=== PATIENT | female | born 1960 | race Caucasian/White ===

== ENCOUNTER 2020-08-31 16:26 | Inpatient (IN) | payer BC ==
[~2020-08-31] VITALS: Ht 167.6 cm; Wt 70.7 kg
[~2020-08-31 16:26] MED LIST: ASPI-252 PO; Albuterol Sulfate NEB; CYAN-25 PO; FERR-36 PO; FLUO20CA20 PO; LISI-130 PO; Metoprolol Tartrate PO; OLAN20TA15 PO; ONDA8TAB9 PO; RISP2TAB78 PO; VALS1TAB33 PO
[2020-08-31 19:00] VITALS: BP 159/64
[2020-08-31] MEDS ORDERED: guaiFENesin ORAL 200 MG/10 ML LIQUID. PO PRN (19:45)
[2020-08-31] MEDS ORDERED: DOCUSATE SODIUM 100 MG CAPSULE. PO PRN (19:45)
[2020-08-31] MEDS ORDERED: ALBUTEROL SULFATE 2.5 MG/3 ML NEBU. NEB PRN (19:45)
[2020-08-31] MEDS ORDERED: ONDANSETRON PF 4 MG/2 ML VIAL. IV PRN (19:45)
[2020-08-31] MEDS ORDERED: SODIUM PHOSPHATES 19/7GM 133 ML ENEMA. PR PRN (19:45)
[2020-08-31] MEDS ORDERED: ACETAMINOPHEN 325 MG TABLET. PO PRN (19:45)
[2020-08-31] MEDS ORDERED: MAG HYDROX/ALUMINUM HYD/SIMETH 30 ML ORAL.SUSP PO PRN (19:45)
[2020-08-31] MEDS ORDERED: 0.9 % SODIUM CHLORIDE 10 ML DISP.SYRIN. IV PRN (20:00)
[2020-08-31] MEDS: HYDROmorphone 2 MG/ML VIAL IVP PRN ×2 (20:30→23:38)
[2020-08-31] MEDS: IV NORMAL SALINE 1000ML BAG 1,000 ML IV SCH (20:32)
[2020-08-31] MEDS: ENOXAPARIN 40 MG/0.4 ML SYRINGE. SQ SCH (20:32)
--- NOTE | 2020-08-31 20:35 | NUR ---
Scheduled Lovenox non-administered d/t pending surgery in AM.
[2020-08-31] MEDS: diphenhydrAMINE 50 MG/ML VIAL IVP PRN (21:52)
[2020-08-31 23:00] VITALS: BP 169/71
--- NOTE | 2020-08-31 23:00 | NUR ---
ADMIT NOTE The patient, LARON BOSS, 60 y/o, F admitted by MORALES LIVINGSTON MD, was given written information regarding hospital policies, unit procedures and contact persons. MD aware of patient's admit to floor and orders received. Patient orientated to room, plan of care discussed and admit packet reviewed. Patient's allergies and daily medications verified; preferred pharmacy reviewed. All patient's belongings left in room at time of admission. Patient resting in bed, bed in lowest/locked position, alarm active and call light within reach; no other needs voiced at this time.
[2020-08-31] MEDS: PIPERACILLIN/TAZOBACTAM 3.375 GM in IV NORMAL SALINE 50ML 50 ML IV SCH (23:38)
[2020-09-01] VITALS (14 sets, daily range): BP systolic 100–200; BP diastolic 55–89
[2020-09-01 01:01] LABS: BILIRUBIN,URINE NEGATIVE (NEG); CLARITY,URINE CLEAR; COLOR,URINE YELLOW; NITRITE,URINE NEGATIVE (NEG); PROTEIN,URINE 30 mg/dL (NEG-TRACE); UROBILINOGEN,URINE 0.2 mg/dL (0.2 mg/dL)
[2020-09-01 01:13] LABS: BACTERIA,URINE 0 /HPF (0-FEW); RBC,URINE OCC /HPF (0-2)
[2020-09-01] MEDS: diphenhydrAMINE 50 MG/ML VIAL IVP PRN ×2 (02:48→20:25)
[2020-09-01] MEDS: HYDROmorphone 2 MG/ML VIAL IVP PRN ×5 (02:49→22:38)
[2020-09-01] MEDS: IV NORMAL SALINE 1000ML BAG 1,000 ML IV SCH ×3 (05:53→23:32)
[2020-09-01] MEDS: PIPERACILLIN/TAZOBACTAM 3.375 GM in IV NORMAL SALINE 50ML 50 ML IV SCH (05:54)
[2020-09-01] MEDS ORDERED: DEXAMETHASONE SOD PHOS 4 MG/ML VIAL ONE (08:09)
[2020-09-01] MEDS ORDERED: SEVOFLURANE 61 TO 120 MINUTES. IH ONE (08:09)
[2020-09-01] MEDS ORDERED: ONDANSETRON PF 4 MG/2 ML VIAL. ONE (08:09)
[2020-09-01] MEDS ORDERED: PROPOFOL 10 MG/ML (20ML) VIAL. IV ONE (08:09)
[2020-09-01] MEDS ORDERED: LIDOCAINE 2% PF 5 ML VIAL. ONE (08:09)
--- NOTE | 2020-09-01 08:43 | PDOC1 ---
History and Physical Date of Admission Date of Admission DATE: 09/01/20 TIME: 08:43 Identification/Chief Complaint Chief Complaint multiple dog bites History of Present Illness History of Present Illness pt is a 60 yr old female who was bitten by her dogs yesterday who were fighting , went to [facility] ER , found to have left ulnar distal fracture from large dog bite, sutured by Dr Keith in ER , transfer here for fracture care IMPRESSION Multiple dog bites to both arms provoked Distal left ulnar fx //cellulitis of both arms due to multiple dog bites /normocytic anemia //HYPERTENSIVE URGENCY Past Medical History Cardiovascular: HTN Infectious disease: No pertinent hx Renal/: No pertinent hx Endocrine: No pertinent hx Family History Family History: Hypertension Social History Smoke: No ALCOHOL: none Drugs: None, Other ( SMOKED) Current Medications Current Medications Current Medications Sodium Chloride (Normal Saline Flush) 3 ml QSHIFT PRN IV AFTER MEDS AND BLOOD DRAWS; Start 08/31/20 at 20:00 Sodium Chloride 1,000 ml @ 100 mls/hr Q10H IV Last administered on 09/01/20at 05:53; Start 08/31/20 at 20:00 Ondansetron HCl (Zofran) 4 mg PRN Q4HRS PRN IV NAUSEA/VOMITING Last administered on 08/31/20at 20:30; Start 08/31/20 at 19:45 Acetaminophen (Tylenol) 650 mg PRN Q4HRS PRN PO TEMP OVER 100.4F OR MILD PAIN Last administered on 08/31/20at 21:52; Start 08/31/20 at 19:45 Al Hydroxide/Mg Hydroxide (Mylanta Plus Xs) 30 ml PRN DAILY PRN PO HEARTBURN / GAS; Start 08/31/20 at 19:45 Sodium Monofluorophosphate (Fleet Adult) 133 ml PRN DAILY PRN OR CONSTIPATION; Start 08/31/20 at 19:45 Diphenhydramine HCl (Benadryl) 25 mg PRN Q4HRS PRN IVP ITCHING Last administered on 09/01/20at 02:48; Start 08/31/20 at 19:45 Docusate Sodium (Colace) 100 mg PRN BID PRN PO HARD STOOLS; Start 08/31/20 at 19:45 Albuterol Sulfate (Ventolin Neb Soln) 2.5 mg PRN Q4HRS PRN NEB SHORTNESS OF BREATH; Start 08/31/20 at 19:45 Guaifenesin (Robitussin) 200 mg PRN Q4HRS PRN PO COUGH; Start 08/31/20 at 19:45 Enoxaparin Sodium (Lovenox 40mg Syringe) 40 mg Q24H SQ ; Start 08/31/20 at 21:00 Piperacillin Sod/ Tazobactam Sod 3.375 gm/Sodium Chloride 50 ml @ 100 mls/hr Q6HRS IV Last administered on 09/01/20at 05:54; Start 09/01/20 at 00:00 Hydromorphone HCl (Dilaudid) 1 mg PRN Q4HRS PRN IVP MODERATE PAIN 4-6 Last administered on 08/31/20at 20:30; Start 08/31/20 at 20:00 Hydromorphone HCl (Dilaudid) 1.5 mg PRN Q3HRS PRN IVP SEVERE PAIN 7-10 Last administered on 09/01/20at 05:54; Start 08/31/20 at 23:30 Propofol (Diprivan) 200 mg STK-MED ONCE IV ; Start 09/01/20 at 08:09; Stop 09/01 at 08:09; Status DC Dexamethasone Sodium Phosphate (Decadron) 4 mg STK-MED ONCE .ROUTE ; Start 09/01/20 at 08:09; Stop 09/01/20 at 08:09; Status DC Lidocaine HCl (Lidocaine Pf 2% Vial) 5 ml STK-MED ONCE .ROUTE ; Start 09/01/20 at 08:09; Stop 09/01/20 at 08:09; Status DC Ondansetron HCl (Zofran) 4 mg STK-MED ONCE .ROUTE ; Start 09/01/20 at 08:09; Stop 09/01/20 at 08:09; Status DC Sevoflurane (Ultane) 60 ml STK-MED ONCE IH ; Start 09/01/20 at 08:09; Stop 09/01/20 at 08:09; Status DC Active Scripts Active Ecotrin (Aspirin) 325 Mg Tablet. 325 Mg PO DAILYWBKFT Allergies Allergies: Coded Allergies: erythromycin base (Verified Allergy, Intermediate, 08/31/20) ROS General: No: Chills, Night Sweats, Fatigue, Malaise, Appetite, Other PSYCHOLOGICAL ROS: No: Anxiety, Behavioral Disorder, Concentration difficultie, Decreased libido, Depression, Disorientation, Hallucinations, Hostility, Irr itablity, Memory difficulties, Mood Swings, Obsessive thoughts, Physical abuse, Sexual abuse, Sleep disturbances, Suicidal ideation, Other Eyes: No Blurry vision, No Decreased vision, No Double vision, No Dry eyes, No Excessive tearing, No Eye Pain, No Itchy Eyes, No Loss of vision, No Photophobia, No Scotomata, No Uses contacts, No Uses glasses, No Other HEENT: No: Heacaches, Visual Changes, Hearing change, Nasal congestion, Nasal discharge, Oral lesions, Sinus pain, Sore Throat, Epistaxis, Sneezing, Snoring, Tinnitus, Vertigo, Vocal changes, Other ALLERGY AND IMMUNOLOGY: No: Hives, Insect Bite Sensitivity, Itchy/Watery Eyes, Nasal Congestion, Post Nasal Drip, Seasonal Allergies, Other Hematological and Lymphatic: No: Bleeding Problems, Blood Clots, Blood Transfusions, Brusing, Night Sweats, Pallor, Swollen Lymph Nodes, Other ENDOCRINE: No: Breast Changes, Galactorrhea, Hair Pattern Changes, Hot Flashes, Malaise/lethargy, Mood Swings, Palpitations, Polydipsia/polyuria, Skin Changes, Temperature Intolerance, Unexpected Weight Changes, Other Breast: No New/Changing Breast Lumps, No Nipple changes, No Nipple discharge, No Other Respiratory: No: Cough, Hemoptysis, Orthopnea, Pleuritic Pain, Shortness of breath, SOB with excertion, Sputum Changes, Stridor, Tachypnea, Wheezing, Other Cardiovascular: No Chest Pain, No Palpitations, No Orthopnea, No Paroxysmal Noc. Dyspnea, No Edema, No Lt Headedness, No Other Gastrointestinal: No Nausea, No Vomiting, No Abdominal Pain, No Diarrhea, No Constipation, No Melena, No Hematochezia, No Other Genitourinary: No Dysuria, No Frequency, No Incontinence, No Hematuria, No Retention, No Discharge, No Urgency, No Pain, No Flank Pain, No Other, No , No , No , No , No , No , No Musculoskeletal: Yes Joint Pain, Yes Joint Stiffness, Yes Joint Swelling, Yes Muscle Pain, Yes Pain In: (LEFT WRIST); No Gait Disturbance, No Muscular Weakness, No Swelling In:, No Other Neurological: No Behavorial Changes, No Bowel/Bladder ControlChng, No Confusion, No Dizziness, No Gait Disturbance, No Headaches, No Impaired Coord/balance, No Memory Loss, No Numbness/Tingling, No Seizures, No Speech Problems, No Tremors, No Visual Changes, No Weakness, No Other Skin: Yes Skin Lesion Changes; No Dry Skin, No Eczema, No Hair Changes, No Lumps, No Mole Changes, No Mottling, No Nail Changes, No Pruritus, No Rash, No Other, No Acne Physical Exam General: Alert, Oriented X3, Cooperative, No acute distress, mild distress HEENT: PERRLA, EOMI, Mucous membr. moist/pink Lungs: Clear to auscultation, Normal air movement Heart: S1S2, RRR, no thrills, no gallops, no jug vein distention Breasts: Not examined Abdomen: Normal bowel sounds, Soft, No tenderness Rectal Exam: not examined PELVIC: Examination not indicated Extremities: No clubbing, No cyanosis Neuro: Normal speech, Normal tone, Sensation intact, Cranial nerves 3-12 NL Psych/Mental Status: Mental status NL, Mood NL Vitals Vitals Vital Signs Date Time Temp Pulse Resp B/P (MAP) Pulse Ox O2 Delivery O2 Flow Rate FiO2 09/01/20 07:00 99.1 87 16 175/72 (106) Room Air 99.1 09/01/20 06:20 93 Labs Labs Laboratory Tests Test 08/31/20 22:00 09/01/20 00:10 09/01/20 01:00 SARS-CoV-2 RNA (SNEHA) Negative (Negative) SARS-CoV-2 Antigen (Rapid) Negative (NEGATIVE) Urine Collection Type Unknown Urine Color Yellow Urine Clarity Clear Urine pH 7.0 (<5.0-8.0) Urine Specific [place] 1.015 (1.000-1.030) Urine Protein 30 mg/dL (NEG-TRACE) Urine Glucose (UA) Negative mg/dL (NEG) Urine Ketones (Stick) Negative mg/dL (NEG) Urine Blood Negative (NEG) Urine Nitrite Negative (NEG) Urine Bilirubin Negative (NEG) Urine Urobilinogen Dipstick 0.2 mg/dL (0.2 mg/dL) Urine Leukocyte Esterase Moderate (NEG) Urine RBC Occ /HPF (0-2) Urine WBC 5-10 /HPF (0-4) Urine Squamous Epithelial Cells Many /LPF Urine Bacteria 0 /HPF (0-FEW) Urine Mucus Slight /LPF Troponin I Quantitative < 0.017 ng/mL (0.000-0.055) Laboratory Tests Test 08/31/20 22:00 09/01/20 00:10 09/01/20 01:00 SARS-CoV-2 RNA (SNEHA) Negative (Negative) SARS-CoV-2 Antigen (Rapid) Negative (NEGATIVE) Urine Collection Type Unknown Urine Color Yellow Urine Clarity Clear Urine pH 7.0 (<5.0-8.0) Urine Specific [place] 1.015 (1.000-1.030) Urine Protein 30 mg/dL (NEG-TRACE) Urine Glucose (UA) Negative mg/dL (NEG) Urine Ketones (Stick) Negative mg/dL (NEG) Urine Blood Negative (NEG) Urine Nitrite Negative (NEG) Urine Bilirubin Negative (NEG) Urine Urobilinogen Dipstick 0.2 mg/dL (0.2 mg/dL) Urine Leukocyte Esterase Moderate (NEG) Urine RBC Occ /HPF (0-2) Urine WBC 5-10 /HPF (0-4) Urine Squamous Epithelial Cells Many /LPF Urine Bacteria 0 /HPF (0-FEW) Urine Mucus Slight /LPF Troponin I Quantitative < 0.017 ng/mL (0.000-0.055) VTE Prophylaxis Ordered VTE Prophylaxis Devices: No VTE Pharmacological Prophylaxi: No Assessment/Plan Assessment/Plan impression Multiple dog bites to both arms provoked Distal left ulnar fx cellulitis of both arms due to multiple dog bites normocytic anemia HYPERTENSIVE URGENCY plan ortho consult ID consult emperic iv antibiotics blood cultures iv pain control FE PANEL RETIC occult stools DVT PROPHYLAXIS D/W ER DR Justifications for Admission Other Justification dog bites with cellulitis MORALES LIVINGSTON MD Sep 01, 2020 08:43
[2020-09-01] MEDS: IV RINGERS,LACTATED 1000ML 1,000 ML IV SCH ×2 (09:29→12:31)
[2020-09-01] MEDS ORDERED: fentaNYL PF VIAL 100 MCG/2 ML VIAL IVP PRN (09:30)
[2020-09-01] MEDS ORDERED: HYDROmorphone 2 MG/ML VIAL IVP PRN (09:30)
[2020-09-01] MEDS ORDERED: PROCHLORPERAZINE 10 MG/2 ML VIAL. IVP PRN (09:30)
[2020-09-01] MEDS ORDERED: fentaNYL PF VIAL 100 MCG/2 ML VIAL ONE ×2 (09:32→11:47)
[2020-09-01] MEDS: fentaNYL PF VIAL 100 MCG/2 ML VIAL IVP PRN ×4 (09:44→12:20)
--- NOTE | 2020-09-01 09:55 | NUR ---
SW following. Discussed with RN, pt from home with , room air, NPO. ID and Ortho following. Pt having surgery today. RN advised no SW needs at this time. SW will continue to follow.
[2020-09-01] MEDS ORDERED: 0.9 % SODIUM CHLORIDE 10 ML DISP.SYRIN. IV PRN (11:15)
[2020-09-01] MEDS ORDERED: MAG HYDROX/ALUMINUM HYD/SIMETH 30 ML ORAL.SUSP PO PRN (11:15)
[2020-09-01] MEDS ORDERED: SODIUM PHOSPHATES 19/7GM 133 ML ENEMA. PR PRN (11:15)
[2020-09-01] MEDS ORDERED: DOCUSATE SODIUM 100 MG CAPSULE. PO PRN (11:15)
[2020-09-01] MEDS ORDERED: guaiFENesin ORAL 200 MG/10 ML LIQUID. PO PRN (11:15)
[2020-09-01] MEDS ORDERED: ZOLPIDEM 5 MG TABLET. PO PRN (11:15)
[2020-09-01] MEDS ORDERED: MORPHINE SULFATE 2 MG/ML INJ. ONE ×2 (11:47→13:01)
[2020-09-01] MEDS: MORPHINE SULFATE 2 MG/ML INJ. IVP PRN ×4 (12:03→13:25)
[2020-09-01] MEDS ORDERED: hydrALAZINE 20 MG/ML VIAL. ONE (12:28)
[2020-09-01] MEDS: hydrALAZINE 20 MG/ML VIAL. IVP PRN (12:32)
[2020-09-01] MEDS: AMPICILLIN/SULBACTAM 3 GM in IV NORMAL SALINE 100ML 100 ML IV SCH ×3 (14:10→23:32)
[2020-09-01] MEDS: HYDROcodone/APAP 5/325MG 1 TAB TABLET PO PRN ×3 (14:10→22:38)
--- NOTE | 2020-09-01 15:36 | PDOC4 ---
Operative Note Operative Note Date of surgery: 09/01/2020 Preoperative diagnosis: Open left distal ulna fracture Postoperative diagnosis: Same with lacerations dorsal forearm from dog bite Operative procedure: Irrigation debridement of open left distal ulna fracture and open reduction internal fixation, closure of separate forearm lacerations dorsal forearm 11 cm total Surgeon: Brandy Brass Roller: Paulo nicole Anesthesia: General Estimated blood loss: 25 cc Complications: None Operative indications: Patient is a 60-year-old female who sustained an open distal ulna fracture and forearm lacerations from a dog bite at home. I had gone over with her the increased risk of infection from this injury difficulties with potential nonhealing of her comminuted fracture possibility of nerve or blood vessel damage continued pain medical or other anesthetic complications among others all her questions were answered she wishes to proceed with surgical evaluation and treatment Operative text: Patient was identified procedure verified patient placed in the supine position on the operating table. After adequate amounts of general anesthesia were administered the left upper extremity was prepped and draped in standard sterile fashion and an upper arm tourniquet was applied. After timeout was performed patient procedure identified and verified the area of her lacerations which did probe down nearly to bone from the dorsal incision was thoroughly irrigated with normal saline solution. An incision was then made over the small incision ulnarly extended longitudinally and this did probe directly down to the fracture site. Cultures were taken at the fracture site prior to the irrigation and irrigation of both incision areas was carried out with normal saline solution and any devitalized tissue debrided and bleeding points controlled by electrocautery. Subperiosteal dissection was carried out to allow fracture reduction and a 5 hole titanium one third tubular Belen plate was placed and secured proximally and distally with 3.5 cortical screws. Distally an additional 2.7 screw was placed through the plate and got a good bite of the comminuted opposite cortex. An additional 3.5 nonlocking screw was placed medially with excellent fixation and the last hole was kept open due to the comminution although a #2 max braid suture was placed around the comminuted fragments to hold them in place to attempt to reconstitute the cortex as much as possible. Further thorough irrigation carried out normal saline solution subcutaneous closure with buried Vicryl suture skin closure with nylon suture and the complex laceration of the dorsal forearm was likewise closed with nylon suture about 11 cm in total length. Paulo Loc lab assistant assisted in patient positioning prepping draping retraction closure dressings LLOYD BURNS MD Sep 01, 2020 15:36
--- NOTE | 2020-09-01 16:38 | NUR ---
pt already has full bag of fluids no need for a new bag at this time
[2020-09-01] MEDS: LACTOBACILLUS RHAMNOSUS GG 1 CAPSULE. PO SCH (20:24)
[2020-09-01] MEDS: ENOXAPARIN 40 MG/0.4 ML SYRINGE. SQ SCH (20:24)
--- NOTE | 2020-09-01 20:24 | NUR ---
Scheduled Lovenox non-administered d/t insufficient amount of time since recent surgery complete.
--- NOTE | 2020-09-01 23:15 | CONS ---
DATE OF CONSULTATION: 09/01/2020 REFERRING PHYSICIAN: Dakota Rob MD REASON FOR CONSULTATION: Dog bite. HISTORY OF PRESENT ILLNESS: This is a 60-year-old female who was transferred from [place]. The patient initially presented with her own dogs that were fighting and she tried to separate them sustaining some bite mcdaniel on the right wrist and arm and a little laceration on the left upper eyebrow. The patient was treated and put on Augmentin and was discharged and the patient got into another dog. She has total 4 dogs, another dog fighting with another dog in the house and ended up injuring the left upper extremity. Now, there is a fracture of the distal ulna and skin breakdowns and lacerations, hence eventual transfer here. The patient denies any nausea, vomiting, diarrhea. Denies any fevers. Does have a lot of pain into the right upper extremity, has had 99.6 temperature elevation and she is supposed to go for surgery today. The patient is on Zosyn. PAST MEDICAL HISTORY: Positive for chronic headaches. She has had coronary artery disease, hypertension, gastroesophageal reflux disease, ovarian cyst removal done in the past, bilateral shoulder surgery done, attention deficit disorder, bipolar disorder, anxiety, depression. SOCIAL HISTORY: Positive for smoking, alcohol use. No drug use. ALLERGIES: LISTED ALLERGIC TO ERYTHROMYCIN. CURRENT MEDICATIONS: Reviewed. REVIEW OF SYSTEMS: As in HPI. All other systems reviewed are negative. PHYSICAL EXAMINATION: GENERAL: Alert, oriented female, not in distress. VITAL SIGNS: Temperature 99.6, pulse 85, respirations 20, blood pressure 200/104. HEENT: Both pupils are round and reacting. No conjunctival lesion. Does have a small superficial laceration on the left upper eyelid. NECK: Supple, no JVP, no lymphadenopathy. LUNGS: Clear. HEART: S1, S2 regular. ABDOMEN: Soft, nontender, no organomegaly. EXTREMITIES: No edema or cyanosis. SKIN: Exam is unremarkable except right upper extremity has multiple skin breakdowns and tenderness present and the left upper extremity is under the soft cast, which was not removed. NEUROLOGIC: The patient is alert, awake, and appropriate. No focal neurologic deficit. LABORATORY DATA: White count is 8.7. BUN and creatinine is normal at 34 and 0.9. Urinalysis unremarkable. COVID was negative. X-ray of the left ulna reviewed. IMPRESSION: 1. Multiple areas of dog bite. 2. Comminuted fracture of the left distal ulna. 3. Low-grade fever. 4. Hypertension. 5. Coronary artery disease. RECOMMEND: Change Zosyn to Unasyn. The patient has been up to date with her tetanus immunization as well as her dogs are up to date with immunizations except because of the COVID they are just delayed by a few months and they are indoor dogs she says. Thank you very much Dr. Rob for giving me the opportunity to participate in this patient's care. We will continue to follow. JOO DR: Danny TID: [id number]
[2020-09-02] MEDS: HYDROcodone/APAP 5/325MG 1 TAB TABLET PO PRN ×2 (02:52→08:08)
[2020-09-02] MEDS: HYDROmorphone 2 MG/ML VIAL IVP PRN ×5 (02:53→20:28)
[2020-09-02 03:09] VITALS: BP 170/70
[2020-09-02] MEDS: AMPICILLIN/SULBACTAM 3 GM in IV NORMAL SALINE 100ML 100 ML IV SCH ×3 (05:46→17:15)
[2020-09-02 07:00] VITALS: BP 200/84
[2020-09-02] MEDS: hydrALAZINE 20 MG/ML VIAL. IVP PRN (07:45)
[2020-09-02] MEDS: LACTOBACILLUS RHAMNOSUS GG 1 CAPSULE. PO SCH ×2 (07:45→20:27)
--- NOTE | 2020-09-02 08:11 | NUR ---
Patients IV infiltrated, Dilaudid IV dose was not delivered. Unable to attain IV access, IM one time dose was given.
[2020-09-02] MEDS ORDERED: cloNIDine HCL 0.1 MG TABLET PO ONE (08:15)
[2020-09-02] MEDS ORDERED: HYDROmorphone 2 MG/ML VIAL IM ONE (08:15)
[2020-09-02 08:35] LABS: BASO # 0.1 x10^3/uL (0.0-0.2); BASO % 1 % (0-3); EOS % 0 % (0-3); HEMATOCRIT 36.1 % (36.0-47.0); HEMOGLOBIN 12.4 g/dL (12.0-15.5); LYMPH # 2.3 x10^3/uL (1.0-4.8); LYMPH % 27 % (24-48); MEAN CORPUSCULAR HEMOGLOBIN 36 pg (25-35); MEAN CORPUSCULAR HGB CONC 34 g/dL (31-37); MEAN CORPUSCULAR VOLUME 104 fL (79-100); MONO # 0.8 x10^3/uL (0.0-1.1); MONO % 9 % (0-9); NEUT # 5.5 x10^3/uL (1.8-7.7); NEUT % 62 % (31-73); PLATELET COUNT 134 x10^3/uL (140-400); RED BLOOD COUNT 3.49 x10^6/uL (3.50-5.40); RED CELL DISTRIBUTION WIDTH 13.5 % (11.5-14.5); WHITE BLOOD COUNT 8.8 x10^3/uL (4.0-11.0)
[2020-09-02 08:51] LABS: CALCIUM 9.4 mg/dL (8.5-10.1); CREATININE 0.5 mg/dL (0.6-1.0); GFR 125.9
--- NOTE | 2020-09-02 09:49 | PDOC ---
PROGRESS NOTES Date of Service: DATE: 09/02/20 TIME: 09:49 Chief Complaint Chief Complaint VTE Prophylaxis Ordered VTE Prophylaxis Devices: No VTE Pharmacological Prophylaxi: No Assessment/Plan Assessment/Plan impression Multiple dog bites to both arms provoked Distal left ulnar fx cellulitis of both arms due to multiple dog bites /patient has been up to date with her tetanus immunization as well as her dogs are up to date with immunizations Irrigation debridement of open left distal ulna fracture and open reduction internal fixation, closure of separate forearm lacerations dorsal forearm 11 cm total pod # 1 normocytic anemia HYPERTENSIVE URGENCY plan ortho consult ID consult emperic iv antibiotics, UNASYN blood cultures iv pain control FE PANEL RETIC occult stools DVT PROPHYLAXIS D/W RN 37 MIN pt exam, chart review, > 50% of time spent with exam, chart review, pt care coordination Justifications for Admission Other Justification dog bites with cellulitis History of Present Illness History of Present Illness Identification/Chief Complaint Chief Complaint multiple dog bites History of Present Illness History of Present Illness pt is a 60 yr old female who was bitten by her dogs yesterday who were fighting , went to [facility] ER , found to have left ulnar distal fracture from large dog bite, sutured by Dr Keith in ER , transfer here for fracture care IMPRESSION Multiple dog bites to both arms provoked Distal left ulnar fx //cellulitis of both arms due to multiple dog bites /normocytic anemia //HYPERTENSIVE URGENCY Past Medical History Cardiovascular: HTN Infectious disease: No pertinent hx Renal/: No pertinent hx Endocrine: No pertinent hx Family History Family History: Hypertension Social History Smoke: No ALCOHOL: none Drugs: None, Other ( SMOKED) Current Medications Current Medications Current Medications Sodium Chloride (Normal Saline Flush) 3 ml QSHIFT PRN IV AFTER MEDS AND BLOOD DRAWS; Start 08/31/20 at 20:00 Sodium Chloride 1,000 ml @ 100 mls/hr Q10H IV Last administered on 09/01/20at 05:53; Start 08/31/20 at 20:00 Ondansetron HCl (Zofran) 4 mg PRN Q4HRS PRN IV NAUSEA/VOMITING Last administered on 08/31/20at 20:30; Start 08/31/20 at 19:45 Acetaminophen (Tylenol) 650 mg PRN Q4HRS PRN PO TEMP OVER 100.4F OR MILD PAIN Last administered on 08/31/20at 21:52; Start 08/31/20 at 19:45 Al Hydroxide/Mg Hydroxide (Mylanta Plus Xs) 30 ml PRN DAILY PRN PO HEARTBURN / GAS; Start 08/31/20 at 19:45 Sodium Monofluorophosphate (Fleet Adult) 133 ml PRN DAILY PRN MI CONSTIPATION; Start 08/31/20 at 19:45 Diphenhydramine HCl (Benadryl) 25 mg PRN Q4HRS PRN IVP ITCHING Last administer ed on 09/01/20at 02:48; Start 08/31/20 at 19:45 Docusate Sodium (Colace) 100 mg PRN BID PRN PO HARD STOOLS; Start 08/31/20 at 19:45 Albuterol Sulfate (Ventolin Neb Soln) 2.5 mg PRN Q4HRS PRN NEB SHORTNESS OF BREATH; Start 08/31/20 at 19:45 Guaifenesin (Robitussin) 200 mg PRN Q4HRS PRN PO COUGH; Start 08/31/20 at 19:45 Enoxaparin Sodium (Lovenox 40mg Syringe) 40 mg Q24H SQ ; Start 08/31/20 at 21:00 Piperacillin Sod/ Tazobactam Sod 3.375 gm/Sodium Chloride 50 ml @ 100 mls/hr Q6HRS IV Last administered on 09/01/20at 05:54; Start 09/01/20 at 00:00 Hydromorphone HCl (Dilaudid) 1 mg PRN Q4HRS PRN IVP MODERATE PAIN 4-6 Last administered on 08/31/20at 20:30; Start 08/31/20 at 20:00 Hydromorphone HCl (Dilaudid) 1.5 mg PRN Q3HRS PRN IVP SEVERE PAIN 7-10 Last administered on 09/01/20at 05:54; Start 08/31/20 at 23:30 Propofol (Diprivan) 200 mg STK-MED ONCE IV ; Start 09/01/20 at 08:09; Stop 09/01/20 at 08:09; Status DC Dexamethasone Sodium Phosphate (Decadron) 4 mg STK-MED ONCE .ROUTE ; Start 09/01/20 at 08:09; Stop 09/01/20 at 08:09; Status DC Lidocaine HCl (Lidocaine Pf 2% Vial) 5 ml STK-MED ONCE .ROUTE ; Start 09/01/20 at 08:09; Stop 09/01/20 at 08:09; Status DC Ondansetron HCl (Zofran) 4 mg STK-MED ONCE .ROUTE ; Start 09/01/20 at 08:09; Stop 09/01/20 at 08:09; Status DC Sevoflurane (Ultane) 60 ml STK-MED ONCE IH ; Start 09/01/20 at 08:09; Stop 09/01/20 at 08:09; Status DC Active Scripts Active Ecotrin (Aspirin) 325 Mg Tablet.dr 325 Mg PO DAILYWBKFT Allergies Allergies: Coded Allergies: erythromycin base (Verified Allergy, Intermediate, 08/31/20) ROS General: No: Chills, Night Sweats, Fatigue, Malaise, Appetite, Other PSYCHOLOGICAL ROS: No: Anxiety, Behavioral Disorder, Concentration difficultie, Decreased libido, Depression, Disorientation, Hallucinations, Hostility, Irritablity, Memory difficulties, Mood Swings, Obsessive thoughts, Physical abuse, Sexual abuse, Sleep disturbances, Suicidal ideation, Other Eyes: No Blurry vision, No Decreased vision, No Double vision, No Dry eyes, No Excessive tearing, No Eye Pain, No Itchy Eyes, No Loss of vision, No Photophobia, No Scotomata, No Uses contacts, No Uses glasses, No Other HEENT: No: Heacaches, Visual Changes, Hearing change, Nasal congestion, Nasal discharge, Oral lesions, Sinus pain, Sore Throat, Epistaxis, Sneezing, Snoring, Tinnitus, Vertigo, Vocal changes, Other ALLERGY AND IMMUNOLOGY: No: Hives, Insect Bite Sensitivity, Itchy/Watery Eyes, Nasal Congestion, Post Nasal Drip, Seasonal Allergies, Other Hematological and Lymphatic: No: Bleeding Problems, Blood Clots, Blood Transfusions, Brusing, Night Sweats, Pallor, Swollen Lymph Nodes, Other ENDOCRINE: No: Breast Changes, Galactorrhea, Hair Pattern Changes, Hot Flashes, Malaise/lethargy, Mood Swings, Palpitations, Polydipsia/polyuria, Skin Changes, Temperature Intolerance, Unexpected Weight Changes, Other Breast: No New/Changing Breast Lumps, No Nipple changes, No Nipple discharge, No Other Respiratory: No: Cough, Hemoptysis, Orthopnea, Pleuritic Pain, Shortness of breath, SOB with excertion, Sputum Changes, Stridor, Tachypnea, Wheezing, Other Cardiovascular: No Chest Pain, No Palpitations, No Orthopnea, No Paroxysmal Noc. Dyspnea, No Edema, No Lt Headedness, No Other Gastrointestinal: No Nausea, No Vomiting, No Abdominal Pain, No Diarrhea, No Constipation, No Melena, No Hematochezia, No Other Genitourinary: No Dysuria, No Frequency, No Incontinence, No Hematuria, No Retention, No Discharge, No Urgency, No Pain, No Flank Pain, No Other, No , No , No , No , No , No , No Musculoskeletal: Yes Joint Pain, Yes Joint Stiffness, Yes Joint Swelling, Yes Muscle Pain, Yes Pain In: (LEFT WRIST); No Gait Disturbance, No Muscular Weakness, No Swelling In:, No Other Neurological: No Behavorial Changes, No Bowel/Bladder ControlChng, No Confusion, No Dizziness, No Gait Disturbance, No Headaches, No Impaired Coord/b alance, No Memory Loss, No Numbness/Tingling, No Seizures, No Speech Problems, No Tremors, No Visual Changes, No Weakness, No Other Skin: Yes Skin Lesion Changes; No Dry Skin, No Eczema, No Hair Changes, No Lumps, No Mole Changes, No Mottling, No Nail Changes, No Pruritus, No Rash, No Other, No Acne Vitals Vitals Vital Signs Date Time Temp Pulse Resp B/P (MAP) Pulse Ox O2 Delivery O2 Flow Rate FiO2 09/02/20 09:31 84 200/84 09/02/20 08:38 Room Air 09/02/20 07:00 98.7 18 95 98.7 09/01/20 12:21 10.0 Physical Exam General: Alert, Oriented X3, Cooperative, No acute distress, mild distress Lungs: Other Abdomen: Normal bowel sounds, Soft, No tenderness Extremities: No clubbing, No cyanosis Labs LABS Procedure Result URINE CULTURE Final Final No Growth on 09/02/20 at 0821 Testing Performed by: [place] [address] For Inquires, the Physician may contact the Microbiology department at [phone] Unless otherwise specified, Testing Performed by: [address] [address] For Inquires, the Physician may contact the Microbiology department at [phone] - Operative Note Operative Note Operative Note Date of surgery: 09/01/2020 Preoperative diagnosis: Open left distal ulna fracture Postoperative diagnosis: Same with lacerations dorsal forearm from dog bite Operative procedure: Irrigation debridement of open left distal ulna fracture and open reduction internal fixation, closure of separate forearm lacerations dorsal forearm 11 cm total Surgeon: Brandy Crystal Flat Grinder: Paulo muniz assist Anesthesia: General Estimated blood loss: 25 cc Complications: None Operative indications: Patient is a 60-year-old female who sustained an open distal ulna fracture and forearm lacerations from a dog bite at home. I had gone over with her the increased risk of infection from this injury difficulties with potential nonhealing of her comminuted fracture possibility of nerve or blood vessel damage continued pain medical or other anesthetic complications among others all her questions were answered she wishes to proceed with surgical evaluation and treatment Laboratory Tests Test 09/01/20 15:15 09/02/20 08:10 Iron Level 17 ug/dL (50-170) Total Iron Binding Capacity 230 ug/dL (250-450) Iron Saturation 7 % (15-34) White Blood Count 8.8 x10^3/uL (4.0-11.0) Red Blood Count 3.49 x10^6/uL (3.50-5.40) Hemoglobin 12.4 g/dL (12.0-15.5) Hematocrit 36.1 % (36.0-47.0) Mean Corpuscular Volume 104 fL (79-100) Mean Corpuscular Hemoglobin 36 pg (25-35) Mean Corpuscular Hemoglobin Concent 34 g/dL (31-37) Red Cell Distribution Width 13.5 % (11.5-14.5) Platelet Count 134 x10^3/uL (140-400) Neutrophils (%) (Auto) 62 % (31-73) Lymphocytes (%) (Auto) 27 % (24-48) Monocytes (%) (Auto) 9 % (0-9) Eosinophils (%) (Auto) 0 % (0-3) Basophils (%) (Auto) 1 % (0-3) Neutrophils # (Auto) 5.5 x10^3/uL (1.8-7.7) Lymphocytes # (Auto) 2.3 x10^3/uL (1.0-4.8) Monocytes # (Auto) 0.8 x10^3/uL (0.0-1.1) Eosinophils # (Auto) 0.0 x10^3/uL (0.0-0.7) Basophils # (Auto) 0.1 x10^3/uL (0.0-0.2) Sodium Level 137 mmol/L (136-145) Potassium Level 4.0 mmol/L (3.5-5.1) Chloride Level 100 mmol/L (98-107) Carbon Dioxide Level 28 mmol/L (21-32) Anion Gap 9 (6-14) Blood Urea Nitrogen 6 mg/dL (7-20) Creatinine 0.5 mg/dL (0.6-1.0) Estimated GFR (Cockcroft-Gault) 125.9 Glucose Level 111 mg/dL (70-99) Calcium Level 9.4 mg/dL (8.5-10.1) Comment Review of Relevant I have reviewed the following items arsalan (where applicable) has been applied. Labs Laboratory Tests Test 08/31/20 22:00 09/01/20 00:10 09/01/20 15:15 09/02/20 08:10 SARS-CoV-2 RNA (SNEHA) Negative (Negative) SARS-CoV-2 Antigen (Rapid) Negative (NEGATIVE) Urine Collection Type Unknown Urine Color Yellow Urine Clarity Clear Urine pH 7.0 (<5.0-8.0) Urine Specific [place] 1.015 (1.000-1.030) Urine Protein 30 mg/dL (NEG-TRACE) Urine Glucose (UA) Negative mg/dL (NEG) Urine Ketones (Stick) Negative mg/dL (NEG) Urine Blood Negative (NEG) Urine Nitrite Negative (NEG) Urine Bilirubin Negative (NEG) Urine Urobilinogen Dipstick 0.2 mg/dL (0.2 mg/dL) Urine Leukocyte Esterase Moderate (NEG) Urine RBC Occ /HPF (0-2) Urine WBC 5-10 /HPF (0-4) Urine Squamous Epithelial Cells Many /LPF Urine Bacteria 0 /HPF (0-FEW) Urine Mucus Slight /LPF Iron Level 17 ug/dL (50-170) Total Iron Binding Capacity 230 ug/dL (250-450) Iron Saturation 7 % (15-34) White Blood Count 8.8 x10^3/uL (4.0-11.0) Red Blood Count 3.49 x10^6/uL (3.50-5.40) Hemoglobin 12.4 g/dL (12.0-15.5) Hematocrit 36.1 % (36.0-47.0) Mean Corpuscular Volume 104 fL (79-100) Mean Corpuscular Hemoglobin 36 pg (25-35) Mean Corpuscular Hemoglobin Concent 34 g/dL (31-37) Red Cell Distribution Width 13.5 % (11.5-14.5) Platelet Count 134 x10^3/uL (140-400) Neutrophils (%) (Auto) 62 % (31-73) Lymphocytes (%) (Auto) 27 % (24-48) Monocytes (%) (Auto) 9 % (0-9) Eosinophils (%) (Auto) 0 % (0-3) Basophils (%) (Auto) 1 % (0-3) Neutrophils # (Auto) 5.5 x10^3/uL (1.8-7.7) Lymphocytes # (Auto) 2.3 x10^3/uL (1.0-4.8) Monocytes # (Auto) 0.8 x10^3/uL (0.0-1.1) Eosinophils # (Auto) 0.0 x10^3/uL (0.0-0.7) Basophils # (Auto) 0.1 x10^3/uL (0.0-0.2) Sodium Level 137 mmol/L (136-145) Potassium Level 4.0 mmol/L (3.5-5.1) Chloride Level 100 mmol/L (98-107) Carbon Dioxide Level 28 mmol/L (21-32) Anion Gap 9 (6-14) Blood Urea Nitrogen 6 mg/dL (7-20) Creatinine 0.5 mg/dL (0.6-1.0) Estimated GFR (Cockcroft-Gault) 125.9 Glucose Level 111 mg/dL (70-99) Calcium Level 9.4 mg/dL (8.5-10.1) Laboratory Tests Test 09/01/20 15:15 09/02/20 08:10 Iron Level 17 ug/dL (50-170) Total Iron Binding Capacity 230 ug/dL (250-450) Iron Saturation 7 % (15-34) White Blood Count 8.8 x10^3/uL (4.0-11.0) Red Blood Count 3.49 x10^6/uL (3.50-5.40) Hemoglobin 12.4 g/dL (12.0-15.5) Hematocrit 36.1 % (36.0-47.0) Mean Corpuscular Volume 104 fL (79-100) Mean Corpuscular Hemoglobin 36 pg (25-35) Mean Corpuscular Hemoglobin Concent 34 g/dL (31-37) Red Cell Distribution Width 13.5 % (11.5-14.5) Platelet Count 134 x10^3/uL (140-400) Neutrophils (%) (Auto) 62 % (31-73) Lymphocytes (%) (Auto) 27 % (24-48) Monocytes (%) (Auto) 9 % (0-9) Eosinophils (%) (Auto) 0 % (0-3) Basophils (%) (Auto) 1 % (0-3) Neutrophils # (Auto) 5.5 x10^3/uL (1.8-7.7) Lymphocytes # (Auto) 2.3 x10^3/uL (1.0-4.8) Monocytes # (Auto) 0.8 x10^3/uL (0.0-1.1) Eosinophils # (Auto) 0.0 x10^3/uL (0.0-0.7) Basophils # (Auto) 0.1 x10^3/uL (0.0-0.2) Sodium Level 137 mmol/L (136-145) Potassium Level 4.0 mmol/L (3.5-5.1) Chloride Level 100 mmol/L (98-107) Carbon Dioxide Level 28 mmol/L (21-32) Anion Gap 9 (6-14) Blood Urea Nitrogen 6 mg/dL (7-20) Creatinine 0.5 mg/dL (0.6-1.0) Estimated GFR (Cockcroft-Gault) 125.9 Glucose Level 111 mg/dL (70-99) Calcium Level 9.4 mg/dL (8.5-10.1) Microbiology 09/01/20 Urine Culture - Final, Complete Medications Current Medications Sodium Chloride (Normal Saline Flush) 3 ml QSHIFT PRN IV AFTER MEDS AND BLOOD DRAWS; Start 08/31/20 at 20:00; Stop 09/01/20 at 11:17; Status DC Sodium Chloride 1,000 ml @ 100 mls/hr Q10H IV Last administered on 09/01/20at 23:32; Start 08/31/20 at 20:00 Ondansetron HCl (Zofran) 4 mg PRN Q4HRS PRN IV NAUSEA/VOMITING Last administered on 08/31/20at 20:30; Start 08/31/20 at 19:45 Acetaminophen (Tylenol) 650 mg PRN Q4HRS PRN PO TEMP OVER 100.4F OR MILD PAIN Last administered on 08/31/20at 21:52; Start 08/31/20 at 19:45; Stop 09/01/20 at 11:18; Status DC Al Hydroxide/Mg Hydroxide (Mylanta Plus Xs) 30 ml PRN DAILY PRN PO HEARTBURN / GAS; Start 08/31/20 at 19:45; Stop 09/01/20 at 15:35; Status DC Sodium Monofluorophosphate (Fleet Adult) 133 ml PRN DAILY PRN MI CONSTIPATION; Start 08/31/20 at 19:45; Stop 09/01/20 at 15:36; Status DC Diphenhydramine HCl (Benadryl) 25 mg PRN Q4HRS PRN IVP ITCHING Last administered on 09/01/20at 20:25; Start 08/31/20 at 19:45 Docusate Sodium (Colace) 100 mg PRN BID PRN PO HARD STOOLS; Start 08/31/20 at 19:45; Stop 09/01/20 at 11:17; Status DC Albuterol Sulfate (Ventolin Neb Soln) 2.5 mg PRN Q4HRS PRN NEB SHORTNESS OF BREATH; Start 08/31/20 at 19:45 Guaifenesin (Robitussin) 200 mg PRN Q4HRS PRN PO COUGH; Start 08/31/20 at 19:45; Stop 09/01/20 at 11:18; Status DC Enoxaparin Sodium (Lovenox 40mg Syringe) 40 mg Q24H SQ ; Start 08/31/20 at 21:00 Piperacillin Sod/ Tazobactam Sod 3.375 gm/Sodium Chloride 50 ml @ 100 mls/hr Q6HRS IV Last administered on 09/01/20at 05:54; Start 09/01/20 at 00:00; Stop 09/01/20 at 10:51; Status DC Hydromorphone HCl (Dilaudid) 1 mg PRN Q4HRS PRN IVP MODERATE PAIN 4-6 Last administered on 09/02/20at 02:53; Start 08/31/20 at 20:00 Hydromorphone HCl (Dilaudid) 1.5 mg PRN Q3HRS PRN IVP SEVERE PAIN 7-10 Last administered on 09/01/20at 22:38; Start 08/31/20 at 23:30 Propofol (Diprivan) 200 mg STK-MED ONCE IV ; Start 09/01/20 at 08:09; Stop 09/01/20 at 08:09; Status DC Dexamethasone Sodium Phosphate (Decadron) 4 mg STK-MED ONCE .ROUTE ; Start 09/01/20 at 08:09; Stop 09/01/20 at 08:09; Status DC Lidocaine HCl (Lidocaine Pf 2% Vial) 5 ml STK-MED ONCE .ROUTE ; Start 09/01/20 at 08:09; Stop 09/01/20 at 08:09; Status DC Ondansetron HCl (Zofran) 4 mg STK-MED ONCE .ROUTE ; Start 09/01/20 at 08:09; Sto p 09/01/20 at 08:09; Status DC Sevoflurane (Ultane) 60 ml STK-MED ONCE IH ; Start 09/01/20 at 08:09; Stop 09/01/20 at 08:09; Status DC Fentanyl Citrate (Fentanyl 2ml Vial) 25 mcg PRN Q5MIN PRN IVP MILD PAIN 1-3; Start 09/01/20 at 09:30; Stop 09/02/20 at 02:18; Status DC Fentanyl Citrate (Fentanyl 2ml Vial) 50 mcg PRN Q5MIN PRN IVP MODERATE PAIN 4-6 Last administered on 09/01/20at 12:20; Start 09/01/20 at 09:30; Stop 09/02/20 at 02:18; Status DC Morphine Sulfate (Morphine Sulfate) 1 mg PRN Q10MIN PRN IVP SEVERE PAIN 7-10 Last administered on 09/01/20at 13:25; Start 09/01/20 at 09:30; Stop 09/02/20 at 02:18; Status DC Ringer's Solution 1,000 ml @ 30 mls/hr Q24H IV Last administered on 09/01/20at 12:31; Start 09/01/20 at 09:30; Stop 09/01/20 at 21:29; Status DC Hydromorphone HCl (Dilaudid) 0.5 mg PRN Q10MIN PRN IVP SEVERE PAIN 7-10, 2nd CHOICE; Start 09/01/20 at 09:30; Stop 09/02/20 at 02:18; Status DC Prochlorperazine Edisylate (Compazine) 5 mg PACU PRN PRN IVP NAUSEA, MRX1; Start 09/01/20 at 09:30; Stop 09/02/20 at 02:18; Status DC Fentanyl Citrate (Fentanyl 2ml Vial) 100 mcg STK-MED ONCE .ROUTE ; Start 09/01/20 at 09:32; Stop 09/01/20 at 09:32; Status DC Fentanyl Citrate (Fentanyl 2ml Vial) 50 mcg PRN Q10MIN PRN IVP PAIN Last administered on 09/01/20at 10:02; Start 09/01/20 at 09:45; Stop 09/01/20 at 18:00; Status DC Ampicillin Sodium/ Sulbactam Sodium 3 gm/Sodium Chloride 100 ml @ 200 mls/hr Q 6HRS IV Last administered on 09/02/20at 05:46; Start 09/01/20 at 12:00 Sodium Chloride (Normal Saline Flush) 3 ml QSHIFT PRN IV AFTER MEDS AND BLOOD DRAWS; Start 09/01/20 at 11:15 Zolpidem Tartrate (Ambien) 5 mg PRN QHS PRN PO INSOMNIA; Start 09/01/20 at 11:15 Acetaminophen (Tylenol) 650 mg PRN Q4HRS PRN PO TEMP OVER 100.4F OR MILD PAIN; Start 09/01/20 at 11:15 Al Hydroxide/Mg Hydroxide (Mylanta Plus Xs) 30 ml PRN DAILY PRN PO HEARTBURN / GAS; Start 09/01/20 at 11:15 Sodium Monofluorophosphate (Fleet Adult) 133 ml PRN DAILY PRN MI CONSTIPATION; Start 09/01/20 at 11:15 Docusate Sodium (Colace) 100 mg PRN BID PRN PO HARD STOOLS; Start 09/01/20 at 11:15 Guaifenesin (Robitussin) 200 mg PRN Q4HRS PRN PO COUGH; Start 09/01/20 at 11:15 Hydralazine HCl (Apresoline Inj) 10 mg PRN Q4HRS PRN IVP ELEVATED BP, SEE COMMENTS Last administered on 09/02/20at 07:45; Start 09/01/20 at 11:15 Fentanyl Citrate (Fentanyl 2ml Vial) 100 mcg STK-MED ONCE .ROUTE ; Start 09/01/20 at 11:47; Stop 09/01/20 at 11:47; Status DC Morphine Sulfate (Morphine Sulfate) 2 mg STK-MED ONCE .ROUTE ; Start 09/01/20 at 11:47; Stop 09/01/20 at 11:47; Status DC Hydralazine HCl (Apresoline Inj) 20 mg STK-MED ONCE .ROUTE ; Start 09/01/20 at 12:28; Stop 09/01/20 at 12:28; Status DC Morphine Sulfate (Morphine Sulfate) 2 mg STK-MED ONCE .ROUTE ; Start 09/01/20 at 13:01; Stop 09/01/20 at 13:01; Status DC Acetaminophen/ Hydrocodone Bitart (Lortab 5/325) 1 tab PRN Q4HRS PRN PO MODERATE-SEVERE PAIN Last administered on 09/02/20at 08:08; Start 09/01/20 at 14:00 Lactobacillus Rhamnosus (Culturelle) 1 cap BID PO Last administered on 09/02/20at 07:45; Start 09/01/20 at 21:00 Clonidine HCl (Catapres) 0.1 mg 1X ONCE PO Last administered on 09/02/20at 09:31; Start 09/02/20 at 08:15; Stop 09/02/20 at 08:16; Status DC Hydromorphone HCl (Dilaudid) 1.5 mg 1X ONCE IM Last administered on 09/02/20at 08:08; Start 09/02/20 at 08:15; Stop 09/02/20 at 08:16; Status DC Active Scripts Active Ecotrin (Aspirin) 325 Mg Tablet.dr 325 Mg PO [id number] Vitals/I & O Vital Sign - Last 24 Hours 09/01/20 09/01/20 09/01/20 09/01/20 09:50 10:02 11:42 11:42 Temp 99.6 98.8 99.6 98.8 Pulse 85 83 Resp 20 20 20 B/P (MAP) 200/104 149/85 Pulse Ox 94 99 99 O2 Delivery Room Air Room Air Mask Simple Mask O2 Flow Rate 10 10 09/01/20 09/01/20 09/01/20 09/01/20 11:57 12:01 12:03 12:12 Pulse 78 80 Resp 20 22 22 22 B/P (MAP) 207/70 191/61 Pulse Ox 100 99 99 99 O2 Delivery Simple Mask Simple Mask Simple Mask Simple Mask O2 Flow Rate 10 10.0 10.0 10 09/01/20 09/01/20 09/01/20 09/01/20 12:20 12:21 12:32 12:32 Pulse 89 89 Resp 22 22 20 B/P (MAP) 180/93 180/93 Pulse Ox 99 99 91 O2 Delivery Simple Mask Simple Mask Room Air O2 Flow Rate 10.0 10.0 09/01/20 09/01/20 09/01/20 09/01/20 12:37 12:42 12:57 13:08 Temp 98.8 98.8 Pulse 92 83 92 Resp B/P (MAP) 162/67 170/69 170/69 Pulse Ox 92 99 91 99 O2 Delivery Room Air Room Air Room Air 09/01/20 09/01/20 09/01/20 09/01/20 13:12 13:25 13:45 13:50 Temp 100.4 98.8 100.4 98.8 Pulse 95 102 Resp 16 B/P (MAP) 153/66 163/80 (107) Pulse Ox 95 95 93 O2 Delivery Room Air Room Air Room Air Room Air 09/01/20 09/01/20 09/01/20 09/01/20 14:00 14:10 14:10 14:15 Pulse 92 101 Resp 16 16 B/P (MAP) 179/67 (104) 184/89 (120) Pulse Ox 95 94 O2 Delivery Room Air Room Air Room Air Room Air 09/01/20 09/01/20 09/01/20 09/01/20 14:30 14:42 14:42 14:45 Pulse 101 101 Resp 16 16 B/P (MAP) 178/73 (108) 200/68 (112) Pulse Ox 92 94 O2 Delivery Room Air Room Air Room Air Room Air 09/01/20 09/01/20 09/01/20 09/01/20 15:00 15:15 15:45 16:45 Temp 98.1 98.1 Pulse 91 92 89 90 Resp 16 16 16 16 B/P (MAP) 136/61 (86) 136/73 (94) 145/55 (85) 154/62 (92) Pulse Ox 93 94 92 95 O2 Delivery Room Air Room Air Room Air Room Air 09/01/20 09/01/20 09/01/20 09/01/20 17:45 17:55 18:19 18:57 Pulse 86 Resp 16 B/P (MAP) 154/72 (99) Pulse Ox 96 O2 Delivery Room Air Room Air Room Air Room Air 09/01/20 09/01/20 09/01/20 09/01/20 19:15 19:15 20:00 22:38 Temp 98.6 98.6 Pulse 89 Resp 14 20 15 B/P (MAP) 100/83 (89) Pulse Ox 95 95 O2 Delivery Room Air Room Air Room Air Room Air 09/01/20 09/01/20 09/01/20 09/01/20 22:38 23:18 23:35 23:35 Temp 99.0 99.0 Pulse 85 Resp 15 18 16 16 B/P (MAP) 165/70 (101) Pulse Ox 95 95 95 O2 Delivery Room Air Room Air Room Air Room Air 09/02/20 09/02/20 09/02/20 09/02/20 02:52 02:53 03:09 04:04 Temp 98.5 98.5 Pulse 74 Resp 16 16 18 B/P (MAP) 170/70 (103) Pulse Ox 96 O2 Delivery Room Air Room Air Room Air Room Air 09/02/20 09/02/20 09/02/20 09/02/20 04:04 07:00 07:45 08:08 Temp 98.7 98.7 Pulse 84 84 Resp 14 18 B/P (MAP) 200/84 (122) 200/84 Pulse Ox 95 O2 Delivery Room Air Room Air Room Air 09/02/20 09/02/20 09/02/20 09/02/20 08:08 08:38 08:38 09:31 Pulse 84 B/P (MAP) 200/84 O2 Delivery Room Air Room Air Room Air Intake and Output 09/01/20 09/01/20 09/02/20 15:00 23:00 07:00 Intake Total 1850 ml 550 ml 1280 ml Output Total 25 ml Balance 1825 ml 550 ml 1280 ml Justicifation of Admission Dx: Justifications for Admission: Justification of Admission Dx: Yes Cellulitis: Cellulitis Fracture: Fracture MORALES LIVINGSTON MD Sep 02, 2020 09:49
--- NOTE | 2020-09-02 10:30 | PDOC ---
Infectious Disease Note Subjective Subjective Patient is feeling better ROS ROS No nausea vomiting diarrhea chest pain shortness of breath Vital Sign Vital Signs Vital Signs Date Time Temp Pulse Resp B/P (MAP) Pulse Ox O2 Delivery O2 Flow Rate FiO2 09/02/20 09:31 84 200/84 09/02/20 08:38 Room Air 09/02/20 07:00 98.7 18 95 98.7 09/01/20 12:21 10.0 Physical Exam PHYSICAL EXAM GENERAL: Alert, oriented female, not in distress. VITAL SIGNS: Stable HEENT: Both pupils are round and reacting. No conjunctival lesion. Does have a small superficial laceration on the left upper eyelid. NECK: Supple, no JVP, no lymphadenopathy. LUNGS: Clear. HEART: S1, S2 regular. ABDOMEN: Soft, nontender, no organomegaly. EXTREMITIES: No edema or cyanosis. SKIN: Exam is unremarkable except right upper extremity has multiple skin breakdowns and tenderness present and the left upper extremity is under the soft cast, which was not removed. NEUROLOGIC: The patient is alert, awake, and appropriate. No focal neurologic deficit. Labs Lab Laboratory Tests Test 09/01/20 15:15 09/02/20 08:10 Iron Level 17 ug/dL (50-170) Total Iron Binding Capacity 230 ug/dL (250-450) Iron Saturation 7 % (15-34) White Blood Count 8.8 x10^3/uL (4.0-11.0) Red Blood Count 3.49 x10^6/uL (3.50-5.40) Hemoglobin 12.4 g/dL (12.0-15.5) Hematocrit 36.1 % (36.0-47.0) Mean Corpuscular Volume 104 fL (79-100) Mean Corpuscular Hemoglobin 36 pg (25-35) Mean Corpuscular Hemoglobin Concent 34 g/dL (31-37) Red Cell Distribution Width 13.5 % (11.5-14.5) Platelet Count 134 x10^3/uL (140-400) Neutrophils (%) (Auto) 62 % (31-73) Lymphocytes (%) (Auto) 27 % (24-48) Monocytes (%) (Auto) 9 % (0-9) Eosinophils (%) (Auto) 0 % (0-3) Basophils (%) (Auto) 1 % (0-3) Neutrophils # (Auto) 5.5 x10^3/uL (1.8-7.7) Lymphocytes # (Auto) 2.3 x10^3/uL (1.0-4.8) Monocytes # (Auto) 0.8 x10^3/uL (0.0-1.1) Eosinophils # (Auto) 0.0 x10^3/uL (0.0-0.7) Basophils # (Auto) 0.1 x10^3/uL (0.0-0.2) Sodium Level 137 mmol/L (136-145) Potassium Level 4.0 mmol/L (3.5-5.1) Chloride Level 100 mmol/L (98-107) Carbon Dioxide Level 28 mmol/L (21-32) Anion Gap 9 (6-14) Blood Urea Nitrogen 6 mg/dL (7-20) Creatinine 0.5 mg/dL (0.6-1.0) Estimated GFR (Cockcroft-Gault) 125.9 Glucose Level 111 mg/dL (70-99) Calcium Level 9.4 mg/dL (8.5-10.1) Micro Microbiology 09/01/20 Gram Stain - Final, Resulted 09/01/20 Aerobic and Anaerobic Culture - Preliminary, Resulted 09/01/20 Urine Culture - Final, Complete Objective Assessment IMPRESSION: 1. Multiple areas of dog bite. 2. Comminuted fracture of the left distal ulna. Status post ORIF 3. Low-grade fever. 4. Hypertension. 5. Coronary artery disease. Plan Plan of Care Continue antibiotics Follow cultures PARKER TAYLOR MD Sep 02, 2020 10:30
[2020-09-02 11:00] VITALS: BP 161/93
[2020-09-02] MEDS: IV NORMAL SALINE 1000ML BAG 1,000 ML IV SCH ×2 (11:40→22:33)
[2020-09-02] MEDS: ACETAMINOPHEN 325 MG TABLET. PO PRN (11:47)
[2020-09-02] MEDS: HYDROcodone/APAP 7.5/325MG 1 TAB TABLET PO PRN ×2 (13:10→18:51)
[2020-09-02 15:00] VITALS: BP 126/65
[2020-09-02 19:00] VITALS: BP 172/59
[2020-09-02] MEDS: ENOXAPARIN 40 MG/0.4 ML SYRINGE. SQ SCH (21:00)
[2020-09-02] MEDS: diphenhydrAMINE 50 MG/ML VIAL IVP PRN (22:34)
[2020-09-02 23:00] VITALS: BP 166/55
[2020-09-03] VITALS (7 sets, daily range): BP systolic 98–194; BP diastolic 55–90
[2020-09-03] MEDS: HYDROcodone/APAP 7.5/325MG 1 TAB TABLET PO PRN ×4 (00:15→20:13)
[2020-09-03] MEDS: AMPICILLIN/SULBACTAM 3 GM in IV NORMAL SALINE 100ML 100 ML IV SCH ×5 (00:15→23:55)
[2020-09-03] MEDS: ACETAMINOPHEN 325 MG TABLET. PO PRN ×2 (04:18→16:28)
--- NOTE | 2020-09-03 07:46 | PDOC ---
PROGRESS NOTES Date of Service DATE: 09/03/20 TIME: 07:42 Subjective Subjective Problems overnight: She was remarking that her pain is poorly controlled they are switching pain medicines and she cannot keep track of it and it does not seem to be working well or lasting long enough. She has been using her hands a little bit more Objective Vital Signs Vital Signs Date Time Temp Pulse Resp B/P (MAP) Pulse Ox O2 Delivery O2 Flow Rate FiO2 09/03/20 06:16 18 95 Room Air 09/03/20 03:00 98.7 89 98/55 (69) 98.7 09/01/20 12:21 10.0 Physical Exam On exam distal neurovascular status intact the right wrist is a bit swollen but no redness or tenosynovitis. Her flexors extensors are intact bilaterally pronation supination is extremely limited on the right a little better on the left Labs Laboratory Tests Test 09/01/20 15:15 09/02/20 08:10 Iron Level 17 ug/dL (50-170) Total Iron Binding Capacity 230 ug/dL (250-450) Iron Saturation 7 % (15-34) White Blood Count 8.8 x10^3/uL (4.0-11.0) Red Blood Count 3.49 x10^6/uL (3.50-5.40) Hemoglobin 12.4 g/dL (12.0-15.5) Hematocrit 36.1 % (36.0-47.0) Mean Corpuscular Volume 104 fL (79-100) Mean Corpuscular Hemoglobin 36 pg (25-35) Mean Corpuscular Hemoglobin Concent 34 g/dL (31-37) Red Cell Distribution Width 13.5 % (11.5-14.5) Platelet Count 134 x10^3/uL (140-400) Neutrophils (%) (Auto) 62 % (31-73) Lymphocytes (%) (Auto) 27 % (24-48) Monocytes (%) (Auto) 9 % (0-9) Eosinophils (%) (Auto) 0 % (0-3) Basophils (%) (Auto) 1 % (0-3) Neutrophils # (Auto) 5.5 x10^3/uL (1.8-7.7) Lymphocytes # (Auto) 2.3 x10^3/uL (1.0-4.8) Monocytes # (Auto) 0.8 x10^3/uL (0.0-1.1) Eosinophils # (Auto) 0.0 x10^3/uL (0.0-0.7) Basophils # (Auto) 0.1 x10^3/uL (0.0-0.2) Sodium Level 137 mmol/L (136-145) Potassium Level 4.0 mmol/L (3.5-5.1) Chloride Level 100 mmol/L (98-107) Carbon Dioxide Level 28 mmol/L (21-32) Anion Gap 9 (6-14) Blood Urea Nitrogen 6 mg/dL (7-20) Creatinine 0.5 mg/dL (0.6-1.0) Estimated GFR (Cockcroft-Gault) 125.9 Glucose Level 111 mg/dL (70-99) Calcium Level 9.4 mg/dL (8.5-10.1) Laboratory Tests Test 09/02/20 08:10 White Blood Count 8.8 x10^3/uL (4.0-11.0) Red Blood Count 3.49 x10^6/uL (3.50-5.40) Hemoglobin 12.4 g/dL (12.0-15.5) Hematocrit 36.1 % (36.0-47.0) Mean Corpuscular Volume 104 fL (79-100) Mean Corpuscular Hemoglobin 36 pg (25-35) Mean Corpuscular Hemoglobin Concent 34 g/dL (31-37) Red Cell Distribution Width 13.5 % (11.5-14.5) Platelet Count 134 x10^3/uL (140-400) Neutrophils (%) (Auto) 62 % (31-73) Lymphocytes (%) (Auto) 27 % (24-48) Monocytes (%) (Auto) 9 % (0-9) Eosinophils (%) (Auto) 0 % (0-3) Basophils (%) (Auto) 1 % (0-3) Neutrophils # (Auto) 5.5 x10^3/uL (1.8-7.7) Lymphocytes # (Auto) 2.3 x10^3/uL (1.0-4.8) Monocytes # (Auto) 0.8 x10^3/uL (0.0-1.1) Eosinophils # (Auto) 0.0 x10^3/uL (0.0-0.7) Basophils # (Auto) 0.1 x10^3/uL (0.0-0.2) Sodium Level 137 mmol/L (136-145) Potassium Level 4.0 mmol/L (3.5-5.1) Chloride Level 100 mmol/L (98-107) Carbon Dioxide Level 28 mmol/L (21-32) Anion Gap 9 (6-14) Blood Urea Nitrogen 6 mg/dL (7-20) Creatinine 0.5 mg/dL (0.6-1.0) Estimated GFR (Cockcroft-Gault) 125.9 Glucose Level 111 mg/dL (70-99) Calcium Level 9.4 mg/dL (8.5-10.1) Assessment Assessment POD#2 irrigation debridement and fixation of left open distal ulna fracture Plan Plan of Care Continue antibiotics gentle motion and fine motor use of both hands I had a discussion with her that she had gotten Dilaudid intravenously yesterday and that is too strong. She needs to get transitioned over to oral pain medications. She said the Dilaudid did not really work and may be aspirin is a little bit better there were also some issues about anxiety which needs to be treated in other manners. Ultimately the goal is to get her on a satisfactory oral pain medication and she will need some ongoing antibiotics very likely as well Intraoperative cultures currently pending Justicifation of Admission Dx: Justifications for Admission: Justification of Admission Dx: N/A Cellulitis: Cellulitis Fracture: Fracture LLOYD BURNS MD Sep 03, 2020 07:46
[2020-09-03] MEDS: LACTOBACILLUS RHAMNOSUS GG 1 CAPSULE. PO SCH ×2 (08:41→20:11)
[2020-09-03] MEDS: IV NORMAL SALINE 1000ML BAG 1,000 ML IV SCH ×2 (08:42→17:51)
[2020-09-03 08:50] LABS: BASO % 1 % (0-3); EOS # 0.1 x10^3/uL (0.0-0.7); EOS % 2 % (0-3); HEMATOCRIT 32.8 % (36.0-47.0); HEMOGLOBIN 11.4 g/dL (12.0-15.5); LYMPH # 2.2 x10^3/uL (1.0-4.8); LYMPH % 45 % (24-48); MEAN CORPUSCULAR HEMOGLOBIN 36 pg (25-35); MEAN CORPUSCULAR HGB CONC 35 g/dL (31-37); MEAN CORPUSCULAR VOLUME 103 fL (79-100); MONO # 0.5 x10^3/uL (0.0-1.1); MONO % 10 % (0-9); NEUT % 42 % (31-73); PLATELET COUNT 136 x10^3/uL (140-400); RED BLOOD COUNT 3.18 x10^6/uL (3.50-5.40); RED CELL DISTRIBUTION WIDTH 12.8 % (11.5-14.5); WHITE BLOOD COUNT 4.8 x10^3/uL (4.0-11.0)
[2020-09-03 09:06] LABS: ALBUMIN 2.8 g/dL (3.4-5.0); ALBUMIN/GLOBULIN RATIO 0.7 (1.0-1.7); CREATININE 0.6 mg/dL (0.6-1.0); POTASSIUM 3.8 mmol/L (3.5-5.1); TOTAL BILIRUBIN 0.4 mg/dL (0.2-1.0); TOTAL PROTEIN 6.6 g/dL (6.4-8.2)
[2020-09-03 09:12] LABS: CALCIUM 8.7 mg/dL (8.5-10.1)
--- NOTE | 2020-09-03 09:26 | PDOC ---
Infectious Disease Note Subjective Subjective Patient is feeling better ROS ROS no n/v/d/ Vital Sign Vital Signs Vital Signs Date Time Temp Pulse Resp B/P (MAP) Pulse Ox O2 Delivery O2 Flow Rate FiO2 09/03/20 08:42 86 180/84 09/03/20 07:00 98.3 18 96 Room Air 98.3 Physical Exam PHYSICAL EXAM GENERAL: Alert, oriented female, not in distress. VITAL SIGNS: Stable HEENT: Both pupils are round and reacting. No conjunctival lesion. Does have a small superficial laceration on the left upper eyelid. NECK: Supple, no JVP, no lymphadenopathy. LUNGS: Clear. HEART: S1, S2 regular. ABDOMEN: Soft, nontender, no organomegaly. EXTREMITIES: No edema or cyanosis. SKIN: Exam is unremarkable except right upper extremity has multiple skin breakdowns and tenderness present and the left upper extremity is under the soft cast, which was not removed. NEUROLOGIC: The patient is alert, awake, and appropriate. No focal neurologic deficit. Labs Lab Laboratory Tests Test 09/03/20 08:30 White Blood Count 4.8 x10^3/uL (4.0-11.0) Red Blood Count 3.18 x10^6/uL (3.50-5.40) Hemoglobin 11.4 g/dL (12.0-15.5) Hematocrit 32.8 % (36.0-47.0) Mean Corpuscular Volume 103 fL (79-100) Mean Corpuscular Hemoglobin 36 pg (25-35) Mean Corpuscular Hemoglobin Concent 35 g/dL (31-37) Red Cell Distribution Width 12.8 % (11.5-14.5) Platelet Count 136 x10^3/uL (140-400) Neutrophils (%) (Auto) 42 % (31-73) Lymphocytes (%) (Auto) 45 % (24-48) Monocytes (%) (Auto) 10 % (0-9) Eosinophils (%) (Auto) 2 % (0-3) Basophils (%) (Auto) 1 % (0-3) Neutrophils # (Auto) 2.0 x10^3/uL (1.8-7.7) Lymphocytes # (Auto) 2.2 x10^3/uL (1.0-4.8) Monocytes # (Auto) 0.5 x10^3/uL (0.0-1.1) Eosinophils # (Auto) 0.1 x10^3/uL (0.0-0.7) Basophils # (Auto) 0.0 x10^3/uL (0.0-0.2) Sodium Level 138 mmol/L (136-145) Potassium Level 3.8 mmol/L (3.5-5.1) Chloride Level 101 mmol/L (98-107) Carbon Dioxide Level 31 mmol/L (21-32) Anion Gap 6 (6-14) Blood Urea Nitrogen 5 mg/dL (7-20) Creatinine 0.6 mg/dL (0.6-1.0) Estimated GFR (Cockcroft-Gault) 102.0 BUN/Creatinine Ratio 8 (6-20) Glucose Level 135 mg/dL (70-99) Calcium Level 8.7 mg/dL (8.5-10.1) Total Bilirubin 0.4 mg/dL (0.2-1.0) Aspartate Amino Transf (AST/SGOT) 30 U/L (15-37) Alanine Aminotransferase (ALT/SGPT) 48 U/L (14-59) Alkaline Phosphatase 103 U/L (46-116) Total Protein 6.6 g/dL (6.4-8.2) Albumin 2.8 g/dL (3.4-5.0) Albumin/Globulin Ratio 0.7 (1.0-1.7) Micro Microbiology 09/01/20 Gram Stain - Final, Resulted 09/01/20 Aerobic and Anaerobic Culture - Preliminary, Resulted 09/01/20 Urine Culture - Final, Complete Objective Assessment IMPRESSION: 1. Multiple areas of dog bite. 2. Comminuted fracture of the left distal ulna. Status post ORIF 3. Low-grade fever. 4. Hypertension. 5. Coronary artery disease. Plan Plan of Care Continue antibiotics Follow cultures ,neg so far d/w dr Nava, d/c ok on iv antibiotics iv invanz or unasyn with 24 hr infusion f/u with me in 2 wks PARKER TAYLOR MD Sep 03, 2020 09:26
--- NOTE | 2020-09-03 11:19 | PDOC ---
PROGRESS NOTES Date of Service: DATE: 09/03/20 TIME: 11:19 Chief Complaint Chief Complaint VTE Prophylaxis Ordered VTE Prophylaxis Devices: No VTE Pharmacological Prophylaxi: No Assessment/Plan Assessment/Plan impression Multiple dog bites to both arms provoked Distal left ulnar fx cellulitis of both arms due to multiple dog bites /patient has been up to date with her tetanus immunization as well as her dogs are up to date with immunizations Irrigation debridement of open left distal ulna fracture and open reduction internal fixation, closure of separate forearm lacerations dorsal forearm 11 cm total pod # 1 normocytic anemia HYPERTENSIVE URGENCY plan ortho consult ID consult emperic iv antibiotics, UNASYN blood cultures iv pain control FE PANEL RETIC occult stools DVT PROPHYLAXIS D/W RN 37 MIN pt exam, chart review, > 50% of time spent with exam, chart review, pt care coordination Justifications for Admission Other Justification dog bites with cellulitis History of Present Illness History of Present Illness Identification/Chief Complaint Chief Complaint multiple dog bites History of Present Illness History of Present Illness pt is a 60 yr old female who was bitten by her dogs yesterday who were fighting , went to [facility] ER , found to have left ulnar distal fracture from large dog bite, sutured by Dr Keith in ER , transfer here for fracture care IMPRESSION Multiple dog bites to both arms provoked Distal left ulnar fx //cellulitis of both arms due to multiple dog bites /normocytic anemia //HYPERTENSIVE URGENCY Past Medical History Cardiovascular: HTN Infectious disease: No pertinent hx Renal/: No pertinent hx Endocrine: No pertinent hx Family History Family History: Hypertension Social History Smoke: No ALCOHOL: none Drugs: None, Other ( SMOKED) Current Medications Current Medications Current Medications Sodium Chloride (Normal Saline Flush) 3 ml QSHIFT PRN IV AFTER MEDS AND BLOOD DRAWS; Start 08/31/20 at 20:00 Sodium Chloride 1,000 ml @ 100 mls/hr Q10H IV Last administered on 09/01/20at 05:53; Start 08/31/20 at 20:00 Ondansetron HCl (Zofran) 4 mg PRN Q4HRS PRN IV NAUSEA/VOMITING Last administered on 08/31/20at 20:30; Start 08/31/20 at 19:45 Acetaminophen (Tylenol) 650 mg PRN Q4HRS PRN PO TEMP OVER 100.4F OR MILD PAIN Last administered on 08/31/20at 21:52; Start 08/31/20 at 19:45 Al Hydroxide/Mg Hydroxide (Mylanta Plus Xs) 30 ml PRN DAILY PRN PO HEARTBURN / GAS; Start 08/31/20 at 19:45 Sodium Monofluorophosphate (Fleet Adult) 133 ml PRN DAILY PRN AR CONSTIPATION; Start 08/31/20 at 19:45 Diphenhydramine HCl (Benadryl) 25 mg PRN Q4HRS PRN IVP ITCHING Last administer ed on 09/01/20at 02:48; Start 08/31/20 at 19:45 Docusate Sodium (Colace) 100 mg PRN BID PRN PO HARD STOOLS; Start 08/31/20 at 19:45 Albuterol Sulfate (Ventolin Neb Soln) 2.5 mg PRN Q4HRS PRN NEB SHORTNESS OF BREATH; Start 08/31/20 at 19:45 Guaifenesin (Robitussin) 200 mg PRN Q4HRS PRN PO COUGH; Start 08/31/20 at 19:45 Enoxaparin Sodium (Lovenox 40mg Syringe) 40 mg Q24H SQ ; Start 08/31/20 at 21:00 Piperacillin Sod/ Tazobactam Sod 3.375 gm/Sodium Chloride 50 ml @ 100 mls/hr Q6HRS IV Last administered on 09/01/20at 05:54; Start 09/01/20 at 00:00 Hydromorphone HCl (Dilaudid) 1 mg PRN Q4HRS PRN IVP MODERATE PAIN 4-6 Last administered on 08/31/20at 20:30; Start 08/31/20 at 20:00 Hydromorphone HCl (Dilaudid) 1.5 mg PRN Q3HRS PRN IVP SEVERE PAIN 7-10 Last administered on 09/01/20at 05:54; Start 08/31/20 at 23:30 Propofol (Diprivan) 200 mg STK-MED ONCE IV ; Start 09/01/20 at 08:09; Stop 09/01/20 at 08:09; Status DC Dexamethasone Sodium Phosphate (Decadron) 4 mg STK-MED ONCE .ROUTE ; Start 09/01/20 at 08:09; Stop 09/01/20 at 08:09; Status DC Lidocaine HCl (Lidocaine Pf 2% Vial) 5 ml STK-MED ONCE .ROUTE ; Start 09/01/20 at 08:09; Stop 09/01/20 at 08:09; Status DC Ondansetron HCl (Zofran) 4 mg STK-MED ONCE .ROUTE ; Start 09/01/20 at 08:09; Stop 09/01/20 at 08:09; Status DC Sevoflurane (Ultane) 60 ml STK-MED ONCE IH ; Start 09/01/20 at 08:09; Stop 09/01/20 at 08:09; Status DC Active Scripts Active Ecotrin (Aspirin) 325 Mg Tablet.dr 325 Mg PO DAILYWBKFT Allergies Allergies: Coded Allergies: erythromycin base (Verified Allergy, Intermediate, 08/31/20) ROS General: No: Chills, Night Sweats, Fatigue, Malaise, Appetite, Other PSYCHOLOGICAL ROS: No: Anxiety, Behavioral Disorder, Concentration difficultie, Decreased libido, Depression, Disorientation, Hallucinations, Hostility, Irritablity, Memory difficulties, Mood Swings, Obsessive thoughts, Physical abuse, Sexual abuse, Sleep disturbances, Suicidal ideation, Other Eyes: No Blurry vision, No Decreased vision, No Double vision, No Dry eyes, No Excessive tearing, No Eye Pain, No Itchy Eyes, No Loss of vision, No Photophobia, No Scotomata, No Uses contacts, No Uses glasses, No Other HEENT: No: Heacaches, Visual Changes, Hearing change, Nasal congestion, Nasal discharge, Oral lesions, Sinus pain, Sore Throat, Epistaxis, Sneezing, Snoring, Tinnitus, Vertigo, Vocal changes, Other ALLERGY AND IMMUNOLOGY: No: Hives, Insect Bite Sensitivity, Itchy/Watery Eyes, Nasal Congestion, Post Nasal Drip, Seasonal Allergies, Other Hematological and Lymphatic: No: Bleeding Problems, Blood Clots, Blood Transfusions, Brusing, Night Sweats, Pallor, Swollen Lymph Nodes, Other ENDOCRINE: No: Breast Changes, Galactorrhea, Hair Pattern Changes, Hot Flashes, Malaise/lethargy, Mood Swings, Palpitations, Polydipsia/polyuria, Skin Changes, Temperature Intolerance, Unexpected Weight Changes, Other Breast: No New/Changing Breast Lumps, No Nipple changes, No Nipple discharge, No Other Respiratory: No: Cough, Hemoptysis, Orthopnea, Pleuritic Pain, Shortness of breath, SOB with excertion, Sputum Changes, Stridor, Tachypnea, Wheezing, Other Cardiovascular: No Chest Pain, No Palpitations, No Orthopnea, No Paroxysmal Noc. Dyspnea, No Edema, No Lt Headedness, No Other Gastrointestinal: No Nausea, No Vomiting, No Abdominal Pain, No Diarrhea, No Constipation, No Melena, No Hematochezia, No Other Genitourinary: No Dysuria, No Frequency, No Incontinence, No Hematuria, No Retention, No Discharge, No Urgency, No Pain, No Flank Pain, No Other, No , No , No , No , No , No , No Musculoskeletal: Yes Joint Pain, Yes Joint Stiffness, Yes Joint Swelling, Yes Muscle Pain, Yes Pain In: (LEFT WRIST); No Gait Disturbance, No Muscular Weakness, No Swelling In:, No Other Neurological: No Behavorial Changes, No Bowel/Bladder ControlChng, No Confusion, No Dizziness, No Gait Disturbance, No Headaches, No Impaired Coord/b alance, No Memory Loss, No Numbness/Tingling, No Seizures, No Speech Problems, No Tremors, No Visual Changes, No Weakness, No Other Skin: Yes Skin Lesion Changes; No Dry Skin, No Eczema, No Hair Changes, No Lumps, No Mole Changes, No Mottling, No Nail Changes, No Pruritus, No Rash, No Other, No Acne 7-04 Multiple dog bites to both arms provoked Distal left ulnar fx cellulitis of both arms due to multiple dog bites /patient has been up to date with her tetanus immunization as well as her dogs are up to date with immunizations Irrigation debridement of open left distal ulna fracture and open reduction internal fixation, closure of separate forearm lacerations dorsal forearm 11 cm total pod # 1 normocytic anemia HYPERTENSIVE URGENCY Follow cultures , dr Nava, d/c ok on iv antibiotics iv invanz or unasyn with 24 hr infusion Vitals Vitals Vital Signs Date Time Temp Pulse Resp B/P (MAP) Pulse Ox O2 Delivery O2 Flow Rate FiO2 09/03/20 08:42 86 180/84 09/03/20 08:00 Room Air 09/03/20 07:00 98.3 18 96 98.3 Physical Exam Physical Exam GENERAL: Alert, oriented female, not in distress. VITAL SIGNS: Stable HEENT: Both pupils are round and reacting. No conjunctival lesion. Does have a small superficial laceration on the left upper eyelid. NECK: Supple, no JVP, no lymphadenopathy. LUNGS: Clear. HEART: S1, S2 regular. ABDOMEN: Soft, nontender, no organomegaly. EXTREMITIES: No edema or cyanosis. SKIN: Exam is unremarkable except right upper extremity has multiple skin breakdowns and tenderness present and the left upper extremity is under the soft cast, which was not removed. NEUROLOGIC: The patient is alert, awake, and appropriate. No focal neurologic deficit. General: Alert, Oriented X3, Cooperative, No acute distress Heart: Regular rate, Normal S1, No murmurs Lungs: Other Abdomen: Normal bowel sounds, Soft, No tenderness Extremities: No clubbing, No cyanosis Labs LABS OMMENTS: LEFT WRIST WOUND FROM SURGERY ----- ------- Procedure Result GRAM STAIN Final Final NO ORGANISMS SEEN. SQUAMOUS EPI CELL:NONE SEEN PMN (WBCs):NONE SEEN ANAEROBIC-AEROBIC CULTURE Preliminary Preliminary No Growth on 09/02/20 at 0951 No Growth on 09/03/20 at 0941 Unless otherwise specified, Testing Performed by: [address] [address] For Inquires, the Physician may contact the Microbiology department at [phone] Laboratory Tests Test 09/03/20 08:30 White Blood Count 4.8 x10^3/uL (4.0-11.0) Red Blood Count 3.18 x10^6/uL (3.50-5.40) Hemoglobin 11.4 g/dL (12.0-15.5) Hematocrit 32.8 % (36.0-47.0) Mean Corpuscular Volume 103 fL (79-100) Mean Corpuscular Hemoglobin 36 pg (25-35) Mean Corpuscular Hemoglobin Concent 35 g/dL (31-37) Red Cell Distribution Width 12.8 % (11.5-14.5) Platelet Count 136 x10^3/uL (140-400) Neutrophils (%) (Auto) 42 % (31-73) Lymphocytes (%) (Auto) 45 % (24-48) Monocytes (%) (Auto) 10 % (0-9) Eosinophils (%) (Auto) 2 % (0-3) Basophils (%) (Auto) 1 % (0-3) Neutrophils # (Auto) 2.0 x10^3/uL (1.8-7.7) Lymphocytes # (Auto) 2.2 x10^3/uL (1.0-4.8) Monocytes # (Auto) 0.5 x10^3/uL (0.0-1.1) Eosinophils # (Auto) 0.1 x10^3/uL (0.0-0.7) Basophils # (Auto) 0.0 x10^3/uL (0.0-0.2) Sodium Level 138 mmol/L (136-145) Potassium Level 3.8 mmol/L (3.5-5.1) Chloride Level 101 mmol/L (98-107) Carbon Dioxide Level 31 mmol/L (21-32) Anion Gap 6 (6-14) Blood Urea Nitrogen 5 mg/dL (7-20) Creatinine 0.6 mg/dL (0.6-1.0) Estimated GFR (Cockcroft-Gault) 102.0 BUN/Creatinine Ratio 8 (6-20) Glucose Level 135 mg/dL (70-99) Calcium Level 8.7 mg/dL (8.5-10.1) Total Bilirubin 0.4 mg/dL (0.2-1.0) Aspartate Amino Transf (AST/SGOT) 30 U/L (15-37) Alanine Aminotransferase (ALT/SGPT) 48 U/L (14-59) Alkaline Phosphatase 103 U/L (46-116) Total Protein 6.6 g/dL (6.4-8.2) Albumin 2.8 g/dL (3.4-5.0) Albumin/Globulin Ratio 0.7 (1.0-1.7) Comment Review of Relevant I have reviewed the following items arsalan (where applicable) has been applied. Labs Laboratory Tests Test 09/01/20 15:15 09/02/20 08:10 09/03/20 08:30 Iron Level 17 ug/dL (50-170) Total Iron Binding Capacity 230 ug/dL (250-450) Iron Saturation 7 % (15-34) White Blood Count 8.8 x10^3/uL (4.0-11.0) 4.8 x10^3/uL (4.0-11.0) Red Blood Count 3.49 x10^6/uL (3.50-5.40) 3.18 x10^6/uL (3.50-5.40) Hemoglobin 12.4 g/dL (12.0-15.5) 11.4 g/dL (12.0-15.5) Hematocrit 36.1 % (36.0-47.0) 32.8 % (36.0-47.0) Mean Corpuscular Volume 104 fL (79-100) 103 fL (79-100) Mean Corpuscular Hemoglobin 36 pg (25-35) 36 pg (25-35) Mean Corpuscular Hemoglobin Concent 34 g/dL (31-37) 35 g/dL (31-37) Red Cell Distribution Width 13.5 % (11.5-14.5) 12.8 % (11.5-14.5) Platelet Count 134 x10^3/uL (140-400) 136 x10^3/uL (140-400) Neutrophils (%) (Auto) 62 % (31-73) 42 % (31-73) Lymphocytes (%) (Auto) 27 % (24-48) 45 % (24-48) Monocytes (%) (Auto) 9 % (0-9) 10 % (0-9) Eosinophils (%) (Auto) 0 % (0-3) 2 % (0-3) Basophils (%) (Auto) 1 % (0-3) 1 % (0-3) Neutrophils # (Auto) 5.5 x10^3/uL (1.8-7.7) 2.0 x10^3/uL (1.8-7.7) Lymphocytes # (Auto) 2.3 x10^3/uL (1.0-4.8) 2.2 x10^3/uL (1.0-4.8) Monocytes # (Auto) 0.8 x10^3/uL (0.0-1.1) 0.5 x10^3/uL (0.0-1.1) Eosinophils # (Auto) 0.0 x10^3/uL (0.0-0.7) 0.1 x10^3/uL (0.0-0.7) Basophils # (Auto) 0.1 x10^3/uL (0.0-0.2) 0.0 x10^3/uL (0.0-0.2) Sodium Level 137 mmol/L (136-145) 138 mmol/L (136-145) Potassium Level 4.0 mmol/L (3.5-5.1) 3.8 mmol/L (3.5-5.1) Chloride Level 100 mmol/L (98-107) 101 mmol/L (98-107) Carbon Dioxide Level 28 mmol/L (21-32) 31 mmol/L (21-32) Anion Gap 9 (6-14) 6 (6-14) Blood Urea Nitrogen 6 mg/dL (7-20) 5 mg/dL (7-20) Creatinine 0.5 mg/dL (0.6-1.0) 0.6 mg/dL (0.6-1.0) Estimated GFR (Cockcroft-Gault) 125.9 102.0 Glucose Level 111 mg/dL (70-99) 135 mg/dL (70-99) Calcium Level 9.4 mg/dL (8.5-10.1) 8.7 mg/dL (8.5-10.1) BUN/Creatinine Ratio 8 (6-20) Total Bilirubin 0.4 mg/dL (0.2-1.0) Aspartate Amino Transf (AST/SGOT) 30 U/L (15-37) Alanine Aminotransferase (ALT/SGPT) 48 U/L (14-59) Alkaline Phosphatase 103 U/L (46-116) Total Protein 6.6 g/dL (6.4-8.2) Albumin 2.8 g/dL (3.4-5.0) Albumin/Globulin Ratio 0.7 (1.0-1.7) Laboratory Tests Test 09/03/20 08:30 White Blood Count 4.8 x10^3/uL (4.0-11.0) Red Blood Count 3.18 x10^6/uL (3.50-5.40) Hemoglobin 11.4 g/dL (12.0-15.5) Hematocrit 32.8 % (36.0-47.0) Mean Corpuscular Volume 103 fL (79-100) Mean Corpuscular Hemoglobin 36 pg (25-35) Mean Corpuscular Hemoglobin Concent 35 g/dL (31-37) Red Cell Distribution Width 12.8 % (11.5-14.5) Platelet Count 136 x10^3/uL (140-400) Neutrophils (%) (Auto) 42 % (31-73) Lymphocytes (%) (Auto) 45 % (24-48) Monocytes (%) (Auto) 10 % (0-9) Eosinophils (%) (Auto) 2 % (0-3) Basophils (%) (Auto) 1 % (0-3) Neutrophils # (Auto) 2.0 x10^3/uL (1.8-7.7) Lymphocytes # (Auto) 2.2 x10^3/uL (1.0-4.8) Monocytes # (Auto) 0.5 x10^3/uL (0.0-1.1) Eosinophils # (Auto) 0.1 x10^3/uL (0.0-0.7) Basophils # (Auto) 0.0 x10^3/uL (0.0-0.2) Sodium Level 138 mmol/L (136-145) Potassium Level 3.8 mmol/L (3.5-5.1) Chloride Level 101 mmol/L (98-107) Carbon Dioxide Level 31 mmol/L (21-32) Anion Gap 6 (6-14) Blood Urea Nitrogen 5 mg/dL (7-20) Creatinine 0.6 mg/dL (0.6-1.0) Estimated GFR (Cockcroft-Gault) 102.0 BUN/Creatinine Ratio 8 (6-20) Glucose Level 135 mg/dL (70-99) Calcium Level 8.7 mg/dL (8.5-10.1) Total Bilirubin 0.4 mg/dL (0.2-1.0) Aspartate Amino Transf (AST/SGOT) 30 U/L (15-37) Alanine Aminotransferase (ALT/SGPT) 48 U/L (14-59) Alkaline Phosphatase 103 U/L (46-116) Total Protein 6.6 g/dL (6.4-8.2) Albumin 2.8 g/dL (3.4-5.0) Albumin/Globulin Ratio 0.7 (1.0-1.7) Microbiology 09/01/20 Gram Stain - Final, Resulted 09/01/20 Aerobic and Anaerobic Culture - Preliminary, Resulted 09/01/20 Urine Culture - Final, Complete Medications Current Medications Sodium Chloride (Normal Saline Flush) 3 ml QSHIFT PRN IV AFTER MEDS AND BLOOD DRAWS; Start 08/31/20 at 20:00; Stop 09/01/20 at 11:17; Status DC Sodium Chloride 1,000 ml @ 100 mls/hr Q10H IV Last administered on 09/03/20at 08:42; Start 08/31/20 at 20:00 Ondansetron HCl (Zofran) 4 mg PRN Q4HRS PRN IV NAUSEA/VOMITING Last administered on 08/31/20at 20:30; Start 08/31/20 at 19:45 Acetaminophen (Tylenol) 650 mg PRN Q4HRS PRN PO TEMP OVER 100.4F OR MILD PAIN Last administered on 08/31/20at 21:52; Start 08/31/20 at 19:45; Stop 09/01/20 at 11:18; Status DC Al Hydroxide/Mg Hydroxide (Mylanta Plus Xs) 30 ml PRN DAILY PRN PO HEARTBURN / GAS; Start 08/31/20 at 19:45; Stop 09/01/20 at 15:35; Status DC Sodium Monofluorophosphate (Fleet Adult) 133 ml PRN DAILY PRN AR CONSTIPATION; Start 08/31/20 at 19:45; Stop 09/01/20 at 15:36; Status DC Diphenhydramine HCl (Benadryl) 25 mg PRN Q4HRS PRN IVP ITCHING Last administered on 09/02/20at 22:34; Start 08/31/20 at 19:45 Docusate Sodium (Colace) 100 mg PRN BID PRN PO HARD STOOLS; Start 08/31/20 at 19:45; Stop 09/01/20 at 11:17; Status DC Albuterol Sulfate (Ventolin Neb Soln) 2.5 mg PRN Q4HRS PRN NEB SHORTNESS OF BREATH; Start 08/31/20 at 19:45 Guaifenesin (Robitussin) 200 mg PRN Q4HRS PRN PO COUGH; Start 08/31/20 at 19:45; Stop 09/01/20 at 11:18; Status DC Enoxaparin Sodium (Lovenox 40mg Syringe) 40 mg Q24H SQ Last administered on 09/02/20at 21:00; Start 08/31/20 at 21:00 Piperacillin Sod/ Tazobactam Sod 3.375 gm/Sodium Chloride 50 ml @ 100 mls/hr Q6HRS IV Last administered on 09/01/20at 05:54; Start 09/01/20 at 00:00; Stop 09/01/20 at 10:51; Status DC Hydromorphone HCl (Dilaudid) 1 mg PRN Q4HRS PRN IVP MODERATE PAIN 4-6 Last administered on 09/02/20at 02:53; Start 08/31/20 at 20:00 Hydromorphone HCl (Dilaudid) 1.5 mg PRN Q3HRS PRN IVP SEVERE PAIN 7-10 Last administered on 09/02/20at 20:28; Start 08/31/20 at 23:30 Propofol (Diprivan) 200 mg STK-MED ONCE IV ; Start 09/01/20 at 08:09; Stop 09/01/20 at 08:09; Status DC Dexamethasone Sodium Phosphate (Decadron) 4 mg STK-MED ONCE .ROUTE ; Start 09/01/20 at 08:09; Stop 09/01/20 at 08:09; Status DC Lidocaine HCl (Lidocaine Pf 2% Vial) 5 ml STK-MED ONCE .ROUTE ; Start 09/01/20 at 08:09; Stop 09/01/20 at 08:09; Status DC Ondansetron HCl (Zofran) 4 mg STK-MED ONCE .ROUTE ; Start 09/01/20 at 08:09; Stop 09/01/20 at 08:09; Status DC Sevoflurane (Ultane) 60 ml STK-MED ONCE IH ; Start 09/01/20 at 08:09; Stop 09/01/20 at 08:09; Status DC Fentanyl Citrate (Fentanyl 2ml Vial) 25 mcg PRN Q5MIN PRN IVP MILD PAIN 1-3; Start 09/01/20 at 09:30; Stop 09/02/20 at 02:18; Status DC Fentanyl Citrate (Fentanyl 2ml Vial) 50 mcg PRN Q5MIN PRN IVP MODERATE PAIN 4-6 Last administered on 09/01/20at 12:20; Start 09/01/20 at 09:30; Stop 09/02/20 at 02:18; Status DC Morphine Sulfate (Morphine Sulfate) 1 mg PRN Q10MIN PRN IVP SEVERE PAIN 7-10 Last administered on 09/01/20at 13:25; Start 09/01/20 at 09:30; Stop 09/02/20 at 02:18; Status DC Ringer's Solution 1,000 ml @ 30 mls/hr Q24H IV Last administered on 09/01/20at 12:31; Start 09/01/20 at 09:30; Stop 09/01/20 at 21:29; Status DC Hydromorphone HCl (Dilaudid) 0.5 mg PRN Q10MIN PRN IVP SEVERE PAIN 7-10, 2nd CHOICE; Start 09/01/20 at 09:30; Stop 09/02/20 at 02:18; Status DC Prochlorperazine Edisylate (Compazine) 5 mg PACU PRN PRN IVP NAUSEA, MRX1; Start 09/01/20 at 09:30; Stop 09/02/20 at 02:18; Status DC Fentanyl Citrate (Fentanyl 2ml Vial) 100 mcg STK-MED ONCE .ROUTE ; Start 09/01/20 at 09:32; Stop 09/01/20 at 09:32; Status DC Fentanyl Citrate (Fentanyl 2ml Vial) 50 mcg PRN Q10MIN PRN IVP PAIN Last administered on 09/01/20at 10:02; Start 09/01/20 at 09:45; Stop 09/01/20 at 18:00; Status DC Ampicillin Sodium/ Sulbactam Sodium 3 gm/Sodium Chloride 100 ml @ 200 mls/hr Q6HRS IV Last administered on 09/03/20at 06:17; Start 09/01/20 at 12:00 Sodium Chloride (Normal Saline Flush) 3 ml QSHIFT PRN IV AFTER MEDS AND BLOOD DRAWS; Start 09/01/20 at 11:15 Zolpidem Tartrate (Ambien) 5 mg PRN QHS PRN PO INSOMNIA; Start 09/01/20 at 11:15 Acetaminophen (Tylenol) 650 mg PRN Q4HRS PRN PO TEMP OVER 100.4F OR MILD PAIN Last administered on 09/03/20at 04:18; Start 09/01/20 at 11:15 Al Hydroxide/Mg Hydroxide (Mylanta Plus Xs) 30 ml PRN DAILY PRN PO HEARTBURN / GAS; Start 09/01/20 at 11:15 Sodium Monofluorophosphate (Fleet Adult) 133 ml PRN DAILY PRN AR CONSTIPATION; Start 09/01/20 at 11:15 Docusate Sodium (Colace) 100 mg PRN BID PRN PO HARD STOOLS; Start 09/01/20 at 11:15 Guaifenesin (Robitussin) 200 mg PRN Q4HRS PRN PO COUGH; Start 09/01/20 at 11:15 Hydralazine HCl (Apresoline Inj) 10 mg PRN Q4HRS PRN IVP ELEVATED BP, SEE COMMENTS Last administered on 09/02/20at 07:45; Start 09/01/20 at 11:15 Fentanyl Citrate (Fentanyl 2ml Vial) 100 mcg STK-MED ONCE .ROUTE ; Start 09/01/20 at 11:47; Stop 09/01/20 at 11:47; Status DC Morphine Sulfate (Morphine Sulfate) 2 mg STK-MED ONCE .ROUTE ; Start 09/01/20 at 11:47; Stop 09/01/20 at 11:47; Status DC Hydralazine HCl (Apresoline Inj) 20 mg STK-MED ONCE .ROUTE ; Start 09/01/20 at 12:28; Stop 09/01/20 at 12:28; Status DC Morphine Sulfate (Morphine Sulfate) 2 mg STK-MED ONCE .ROUTE ; Start 09/01/20 at 13:01; Stop 09/01/20 at 13:01; Status DC Acetaminophen/ Hydrocodone Bitart (Lortab 5/325) 1 tab PRN Q4HRS PRN PO MODERATE-SEVERE PAIN Last administered on 09/02/20at 08:08; Start 09/01/20 at 14:00; Stop 09/02/20 at 12:59; Status DC Lactobacillus Rhamnosus (Culturelle) 1 cap BID PO Last administered on 09/03/20at 08:41; Start 09/01/20 at 21:00 Clonidine HCl (Catapres) 0.1 mg 1X ONCE PO Last administered on 09/02/20at 09:31; Start 09/02/20 at 08:15; Stop 09/02/20 at 08:16; Status DC Hydromorphone HCl (Dilaudid) 1.5 mg 1X ONCE IM Last administered on 09/02/20at 08:08; Start 09/02/20 at 08:15; Stop 09/02/20 at 08:16; Status DC Amlodipine Besylate (Norvasc) 2.5 mg BID PO Last administered on 09/03/20at 08:42; Start 09/02/20 at 10:00 Acetaminophen/ Hydrocodone Bitart (Lortab 7.5/325) 1 tab PRN Q6HRS PRN PO PAIN Last administered on 09/03/20at 06:16; Start 09/02/20 at 13:00 Active Scripts Active Ecotrin (Aspirin) 325 Mg Tablet. 325 Mg PO DAILYWBKFT Vitals/I & O Vital Sign - Last 24 Hours 09/02/20 09/02/20 09/02/20 09/02/20 11:47 11:48 12:18 13:10 Pulse 85 B/P (MAP) 161/93 O2 Delivery Room Air Room Air Room Air 09/02/20 09/02/20 09/02/20 09/02/20 13:40 15:00 17:10 17:40 Temp 97.7 97.7 Pulse 72 Resp 18 B/P (MAP) 126/65 (85) Pulse Ox 94 O2 Delivery Room Air Room Air Room Air Room Air 09/02/20 09/02/20 09/02/20 09/02/20 18:51 19:00 19:21 20:00 Temp 98.5 98.5 Pulse 78 Resp 18 18 B/P (MAP) 172/59 (96) Pulse Ox 97 97 O2 Delivery Room Air Room Air Room Air Room Air 09/02/20 09/02/20 09/02/20 09/02/20 20:27 20:28 20:58 23:00 Temp 97.9 97.9 Pulse 78 76 Resp 18 18 18 B/P (MAP) 172/59 166/55 (92) Pulse Ox 97 97 96 O2 Delivery Room Air Room Air Room Air 09/03/20 09/03/20 09/03/20 09/03/20 00:15 00:45 03:00 06:16 Temp 98.7 98.7 Pulse 89 Resp 18 18 18 18 B/P (MAP) 98/55 (69) Pulse Ox 96 95 95 95 O2 Delivery Room Air Room Air Room Air Room Air 09/03/20 09/03/20 09/03/20 07:00 08:00 08:42 Temp 98.3 98.3 Pulse 86 86 Resp 18 B/P (MAP) 180/84 (116) 180/84 Pulse Ox 96 O2 Delivery Room Air Room Air Justicifation of Admission Dx: Justifications for Admission: Justification of Admission Dx: N/A Cellulitis: Cellulitis Fracture: Fracture MORALES LIVINGSTON MD Sep 03, 2020 11:19
[2020-09-03] MEDS: hydrALAZINE 20 MG/ML VIAL. IVP PRN (11:28)
[2020-09-03] MEDS: diphenhydrAMINE 50 MG/ML VIAL IVP PRN (20:12)
[2020-09-03] MEDS: ENOXAPARIN 40 MG/0.4 ML SYRINGE. SQ SCH (20:12)
[2020-09-04 03:00] VITALS: BP 190/74
[2020-09-04] MEDS: IV NORMAL SALINE 1000ML BAG 1,000 ML IV SCH ×2 (05:17→15:59)
[2020-09-04] MEDS: AMPICILLIN/SULBACTAM 3 GM in IV NORMAL SALINE 100ML 100 ML IV SCH ×3 (05:18→17:50)
[2020-09-04] MEDS: hydrALAZINE 20 MG/ML VIAL. IVP PRN ×2 (05:18→12:33)
[2020-09-04] MEDS: HYDROcodone/APAP 7.5/325MG 1 TAB TABLET PO PRN ×3 (05:19→19:13)
[2020-09-04 07:00] VITALS: BP 168/72
--- NOTE | 2020-09-04 08:17 | PDOC ---
Infectious Disease Note Subjective Subjective Patient is feeling better ROS ROS no n/v/d/sob Vital Sign Vital Signs Vital Signs Date Time Temp Pulse Resp B/P (MAP) Pulse Ox O2 Delivery O2 Flow Rate FiO2 09/04/20 07:00 98.0 86 18 168/72 (104) 97 Room Air 98.0 Physical Exam PHYSICAL EXAM GENERAL: Alert, oriented female, not in distress. VITAL SIGNS: Stable HEENT: Both pupils are round and reacting. No conjunctival lesion. Does have a small superficial laceration on the left upper eyelid. NECK: Supple, no JVP, no lymphadenopathy. LUNGS: Clear. HEART: S1, S2 regular. ABDOMEN: Soft, nontender, no organomegaly. EXTREMITIES: No edema or cyanosis. SKIN: Exam is unremarkable except right upper extremity has multiple skin breakdowns and tenderness present and the left upper extremity is under the soft cast, which was not removed. NEUROLOGIC: The patient is alert, awake, and appropriate. No focal neurologic deficit. Labs Lab Laboratory Tests Test 09/03/20 08:30 White Blood Count 4.8 x10^3/uL (4.0-11.0) Red Blood Count 3.18 x10^6/uL (3.50-5.40) Hemoglobin 11.4 g/dL (12.0-15.5) Hematocrit 32.8 % (36.0-47.0) Mean Corpuscular Volume 103 fL (79-100) Mean Corpuscular Hemoglobin 36 pg (25-35) Mean Corpuscular Hemoglobin Concent 35 g/dL (31-37) Red Cell Distribution Width 12.8 % (11.5-14.5) Platelet Count 136 x10^3/uL (140-400) Neutrophils (%) (Auto) 42 % (31-73) Lymphocytes (%) (Auto) 45 % (24-48) Monocytes (%) (Auto) 10 % (0-9) Eosinophils (%) (Auto) 2 % (0-3) Basophils (%) (Auto) 1 % (0-3) Neutrophils # (Auto) 2.0 x10^3/uL (1.8-7.7) Lymphocytes # (Auto) 2.2 x10^3/uL (1.0-4.8) Monocytes # (Auto) 0.5 x10^3/uL (0.0-1.1) Eosinophils # (Auto) 0.1 x10^3/uL (0.0-0.7) Basophils # (Auto) 0.0 x10^3/uL (0.0-0.2) Sodium Level 138 mmol/L (136-145) Potassium Level 3.8 mmol/L (3.5-5.1) Chloride Level 101 mmol/L (98-107) Carbon Dioxide Level 31 mmol/L (21-32) Anion Gap 6 (6-14) Blood Urea Nitrogen 5 mg/dL (7-20) Creatinine 0.6 mg/dL (0.6-1.0) Estimated GFR (Cockcroft-Gault) 102.0 BUN/Creatinine Ratio 8 (6-20) Glucose Level 135 mg/dL (70-99) Calcium Level 8.7 mg/dL (8.5-10.1) Total Bilirubin 0.4 mg/dL (0.2-1.0) Aspartate Amino Transf (AST/SGOT) 30 U/L (15-37) Alanine Aminotransferase (ALT/SGPT) 48 U/L (14-59) Alkaline Phosphatase 103 U/L (46-116) Total Protein 6.6 g/dL (6.4-8.2) Albumin 2.8 g/dL (3.4-5.0) Albumin/Globulin Ratio 0.7 (1.0-1.7) Micro Microbiology 09/01/20 Gram Stain - Final, Resulted 09/01/20 Aerobic and Anaerobic Culture - Preliminary, Resulted 09/01/20 Urine Culture - Final, Complete Objective Assessment IMPRESSION: 1. Multiple areas of dog bite. 2. Comminuted fracture of the left distal ulna. Status post ORIF 3. Low-grade fever. 4. Hypertension. 5. Coronary artery disease. Plan Plan of Care Continue antibiotics Follow cultures ,neg so far d/w dr Nava, d/c ok on iv antibiotics iv invanz or unasyn with 24 hr infusion f/u with me in 2 wks PARKER TAYLOR MD Sep 04, 2020 08:17
[2020-09-04] MEDS: LACTOBACILLUS RHAMNOSUS GG 1 CAPSULE. PO SCH ×2 (08:45→19:13)
--- NOTE | 2020-09-04 10:48 | PDOC ---
[employer] PROGRESS NOTE Date of Service DOS: DATE: 09/04/20 TIME: 10:46 Chief Complaint Chief Complaint VTE Prophylaxis Ordered VTE Prophylaxis Devices: No VTE Pharmacological Prophylaxi: No Assessment/Plan Assessment/Plan impression Multiple dog bites to both arms provoked Distal left ulnar fx cellulitis of both arms due to multiple dog bites /patient has been up to date with her tetanus immunization as well as her dogs are up to date with immunizations Irrigation debridement of open left distal ulna fracture and open reduction internal fixation, closure of separate forearm lacerations dorsal forearm 11 cm total pod # 1 normocytic anemia HYPERTENSIVE URGENCY plan ortho consult ID consult emperic iv antibiotics, UNASYN blood cultures iv pain control FE PANEL RETIC occult stools DVT PROPHYLAXIS D/W RN 37 MIN pt exam, chart review, > 50% of time spent with exam, chart review, pt care coordination Justifications for Admission Other Justification dog bites with cellulitis History of Present Illness History of Present Illness Identification/Chief Complaint Chief Complaint multiple dog bites History of Present Illness History of Present Illness pt is a 60 yr old female who was bitten by her dogs yesterday who were fighting , went to [facility] ER , found to have left ulnar distal fracture from large dog bite, sutured by Dr Keith in ER , transfer here for fracture care IMPRESSION Multiple dog bites to both arms provoked Distal left ulnar fx //cellulitis of both arms due to multiple dog bites /normocytic anemia //HYPERTENSIVE URGENCY Past Medical History Cardiovascular: HTN Infectious disease: No pertinent hx Renal/: No pertinent hx Endocrine: No pertinent hx Family History Family History: Hypertension Social History Smoke: No ALCOHOL: none Drugs: None, Other ( SMOKED) Current Medications Current Medications Current Medications Sodium Chloride (Normal Saline Flush) 3 ml QSHIFT PRN IV AFTER MEDS AND BLOOD DRAWS; Start 08/31/20 at 20:00 Sodium Chloride 1,000 ml @ 100 mls/hr Q10H IV Last administered on 09/01/20at 05:53; Start 08/31/20 at 20:00 Ondansetron HCl (Zofran) 4 mg PRN Q4HRS PRN IV NAUSEA/VOMITING Last administered on 08/31/20at 20:30; Start 08/31/20 at 19:45 Acetaminophen (Tylenol) 650 mg PRN Q4HRS PRN PO TEMP OVER 100.4F OR MILD PAIN Last administered on 08/31/20at 21:52; Start 08/31/20 at 19:45 Al Hydroxide/Mg Hydroxide (Mylanta Plus Xs) 30 ml PRN DAILY PRN PO HEARTBURN / GAS; Start 08/31/20 at 19:45 Sodium Monofluorophosphate (Fleet Adult) 133 ml PRN DAILY PRN AK CONSTIPATION; Start 08/31/20 at 19:45 Diphenhydramine HCl (Benadryl) 25 mg PRN Q4HRS PRN IVP ITCHING Last administered on 09/01/20at 02:48; Start 08/31/20 at 19:45 Docusate Sodium (Colace) 100 mg PRN BID PRN PO HARD STOOLS; Start 08/31/20 at 19:45 Albuterol Sulfate (Ventolin Neb Soln) 2.5 mg PRN Q4HRS PRN NEB SHORTNESS OF BREATH; Start 08/31/20 at 19:45 Guaifenesin (Robitussin) 200 mg PRN Q4HRS PRN PO COUGH; Start 08/31/20 at 19:45 Enoxaparin Sodium (Lovenox 40mg Syringe) 40 mg Q24H SQ ; Start 08/31/20 at 21:00 Piperacillin Sod/ Tazobactam Sod 3.375 gm/Sodium Chloride 50 ml @ 100 mls/hr Q6HRS IV Last administered on 09/01/20at 05:54; Start 09/01/20 at 00:00 Hydromorphone HCl (Dilaudid) 1 mg PRN Q4HRS PRN IVP MODERATE PAIN 4-6 Last administered on 08/31/20at 20:30; Start 08/31/20 at 20:00 Hydromorphone HCl (Dilaudid) 1.5 mg PRN Q3HRS PRN IVP SEVERE PAIN 7-10 Last administered on 09/01/20at 05:54; Start 08/31/20 at 23:30 Propofol (Diprivan) 200 mg STK-MED ONCE IV ; Start 09/01/20 at 08:09; Stop 09/01/20 at 08:09; Status DC Dexamethasone Sodium Phosphate (Decadron) 4 mg STK-MED ONCE .ROUTE ; Start 09/01/20 at 08:09; Stop 09/01/20 at 08:09; Status DC Lidocaine HCl (Lidocaine Pf 2% Vial) 5 ml STK-MED ONCE .ROUTE ; Start 09/01/20 at 08:09; Stop 09/01/20 at 08:09; Status DC Ondansetron HCl (Zofran) 4 mg STK-MED ONCE .ROUTE ; Start 09/01/20 at 08:09; Stop 09/01/20 at 08:09; Status DC Sevoflurane (Ultane) 60 ml STK-MED ONCE IH ; Start 09/01/20 at 08:09; Stop 09/01/20 at 08:09; Status DC Active Scripts Active Ecotrin (Aspirin) 325 Mg Tablet.dr 325 Mg PO DAILYWBKFT Allergies Allergies: Coded Allergies: erythromycin base (Verified Allergy, Intermediate, 08/31/20) ROS General: No: Chills, Night Sweats, Fatigue, Malaise, Appetite, Other PSYCHOLOGICAL ROS: No: Anxiety, Behavioral Disorder, Concentration difficultie, Decreased libido, Depression, Disorientation, Hallucinations, Hostility, Irritablity, Memory difficulties, Mood Swings, Obsessive thoughts, Physical abuse, Sexual abuse, Sleep disturbances, Suicidal ideation, Other Eyes: No Blurry vision, No Decreased vision, No Double vision, No Dry eyes, No Excessive tearing, No Eye Pain, No Itchy Eyes, No Loss of vision, No Photophobia, No Scotomata, No Uses contacts, No Uses glasses, No Other HEENT: No: Heacaches, Visual Changes, Hearing change, Nasal congestion, Nasal discharge, Oral lesions, Sinus pain, Sore Throat, Epistaxis, Sneezing, Snoring, Tinnitus, Vertigo, Vocal changes, Other ALLERGY AND IMMUNOLOGY: No: Hives, Insect Bite Sensitivity, Itchy/Watery Eyes, Nasal Congestion, Post Nasal Drip, Seasonal Allergies, Other Hematological and Lymphatic: No: Bleeding Problems, Blood Clots, Blood Transfusions, Brusing, Night Sweats, Pallor, Swollen Lymph Nodes, Other ENDOCRINE: No: Breast Changes, Galactorrhea, Hair Pattern Changes, Hot Flashes, Malaise/lethargy, Mood Swings, Palpitations, Polydipsia/polyuria, Skin Changes, Temperature Intolerance, Unexpected Weight Changes, Other Breast: No New/Changing Breast Lumps, No Nipple changes, No Nipple discharge, No Other Respiratory: No: Cough, Hemoptysis, Orthopnea, Pleuritic Pain, Shortness of breath, SOB with excertion, Sputum Changes, Stridor, Tachypnea, Wheezing, Other Cardiovascular: No Chest Pain, No Palpitations, No Orthopnea, No Paroxysmal Noc. Dyspnea, No Edema, No Lt Headedness, No Other Gastrointestinal: No Nausea, No Vomiting, No Abdominal Pain, No Diarrhea, No Constipation, No Melena, No Hematochezia, No Other Genitourinary: No Dysuria, No Frequency, No Incontinence, No Hematuria, No Retention, No Discharge, No Urgency, No Pain, No Flank Pain, No Other, No , No , No , No , No , No , No Musculoskeletal: Yes Joint Pain, Yes Joint Stiffness, Yes Joint Swelling, Yes Muscle Pain, Yes Pain In: (LEFT WRIST); No Gait Disturbance, No Muscular Weakness, No Swelling In:, No Other Neurological: No Behavorial Changes, No Bowel/Bladder ControlChng, No Confusion, No Dizziness, No Gait Disturbance, No Headaches, No Impaired Coord/balance, No Memory Loss, No Numbness/Tingling, No Seizures, No Speech Problems, No Tremors, No Visual Changes, No Weakness, No Other Skin: Yes Skin Lesion Changes; No Dry Skin, No Eczema, No Hair Changes, No Lumps, No Mole Changes, No Mottling, No Nail Changes, No Pruritus, No Rash, No Other, No Acne 7-04 Multiple dog bites to both arms provoked Distal left ulnar fx cellulitis of both arms due to multiple dog bites /patient has been up to date with her tetanus immunization as well as her dogs are up to date with immunizations Irrigation debridement of open left distal ulna fracture and open reduction internal fixation, closure of separate forearm lacerations dorsal forearm 11 cm total pod # 1 normocytic anemia HYPERTENSIVE URGENCY Follow cultures , dr Nava, d/c ok on iv antibiotics iv invanz or unasyn with 24 hr infusion 09/04/2020: Afebrile. No acute events overnight. Plan to continue IV Unasyn. Will discuss with ID about possible oral antibiotics versus continuing with IV Unasyn infusion. Vitals/I&O Vitals/I&O: Vital Signs Date Time Temp Pulse Resp B/P (MAP) Pulse Ox O2 Delivery O2 Flow Rate FiO2 09/04/20 08:46 86 168/72 09/04/20 07:00 98.0 18 97 Room Air 98.0 I & O 09/03/20 09/03/20 09/04/20 15:00 23:00 07:00 Intake Total 100 ml 100 ml Balance 100 ml 100 ml Physical Exam Physical Exam: GENERAL: Alert, oriented female, not in distress. VITAL SIGNS: Stable HEENT: Both pupils are round and reacting. No conjunctival lesion. Does have a small superficial laceration on the left upper eyelid. NECK: Supple, no JVP, no lymphadenopathy. LUNGS: Clear. HEART: S1, S2 regular. ABDOMEN: Soft, nontender, no organomegaly. EXTREMITIES: No edema or cyanosis. SKIN: Exam is unremarkable except right upper extremity has multiple skin breakdowns and tenderness present and the left upper extremity is under the soft cast, which was not removed. NEUROLOGIC: The patient is alert, awake, and appropriate. No focal neurologic deficit. General: Alert, Oriented X3, Cooperative, No acute distress Heart: Regular rate, Normal S1, No murmurs Lungs: Other Abdomen: Normal bowel sounds, Soft, No tenderness Extremities: No clubbing, No cyanosis Comment Review of Relevant I have reviewed the following items arsalan (where applicable) has been applied. Justifications for Admission Other Justification dog bites with cellulitis CAROLINE MUNOZ MD Sep 04, 2020 10:48
[2020-09-04 11:00] VITALS: BP 162/68
[2020-09-04 15:00] VITALS: BP 94/74
[2020-09-04 19:00] VITALS: BP 152/74
[2020-09-04] MEDS: ENOXAPARIN 40 MG/0.4 ML SYRINGE. SQ SCH (19:15)
[2020-09-04 23:00] VITALS: BP 137/59
[2020-09-05] MEDS: AMPICILLIN/SULBACTAM 3 GM in IV NORMAL SALINE 100ML 100 ML IV SCH ×3 (00:19→12:41)
[2020-09-05] MEDS: IV NORMAL SALINE 1000ML BAG 1,000 ML IV SCH ×2 (00:19→10:00)
[2020-09-05] MEDS: HYDROcodone/APAP 7.5/325MG 1 TAB TABLET PO PRN ×3 (01:10→12:41)
[2020-09-05 03:00] VITALS: BP 163/70
[2020-09-05 04:36] LABS: BASO % 1 % (0-3); EOS # 0.1 x10^3/uL (0.0-0.7); EOS % 2 % (0-3); HEMATOCRIT 33.8 % (36.0-47.0); HEMOGLOBIN 11.8 g/dL (12.0-15.5); LYMPH % 43 % (24-48); MEAN CORPUSCULAR HEMOGLOBIN 36 pg (25-35); MEAN CORPUSCULAR HGB CONC 35 g/dL (31-37); MEAN CORPUSCULAR VOLUME 103 fL (79-100); MONO # 0.8 x10^3/uL (0.0-1.1); MONO % 17 % (0-9); NEUT # 1.7 x10^3/uL (1.8-7.7); NEUT % 37 % (31-73); PLATELET COUNT 202 x10^3/uL (140-400); RED BLOOD COUNT 3.28 x10^6/uL (3.50-5.40); RED CELL DISTRIBUTION WIDTH 13.3 % (11.5-14.5); WHITE BLOOD COUNT 4.7 x10^3/uL (4.0-11.0)
[2020-09-05 04:51] LABS: CALCIUM 8.8 mg/dL (8.5-10.1); CREATININE 0.5 mg/dL (0.6-1.0); GFR 125.9; POTASSIUM 3.8 mmol/L (3.5-5.1)
[2020-09-05 07:00] VITALS: BP 173/67
[2020-09-05] MEDS ORDERED: ONDANSETRON PF 4 MG/2 ML VIAL. ONE (07:11)
[2020-09-05] MEDS ORDERED: DEXAMETHASONE SOD PHOS 4 MG/ML VIAL ONE (07:11)
[2020-09-05] MEDS ORDERED: LIDOCAINE 2% PF 5 ML VIAL. ONE (07:11)
[2020-09-05] MEDS ORDERED: PROPOFOL 10 MG/ML (20ML) VIAL. IV ONE (07:11)
[2020-09-05] MEDS ORDERED: SEVOFLURANE 31 TO 60 MINUTES. IH ONE (07:11)
[2020-09-05] MEDS: LACTOBACILLUS RHAMNOSUS GG 1 CAPSULE. PO SCH (08:04)
--- NOTE | 2020-09-05 08:14 | PDOC ---
[employer] PROGRESS NOTE Date of Service DOS: DATE: 09/05/20 TIME: 08:11 Chief Complaint Chief Complaint VTE Prophylaxis Ordered VTE Prophylaxis Devices: No VTE Pharmacological Prophylaxi: No Assessment/Plan Assessment/Plan impression Multiple dog bites to both arms provoked Distal left ulnar fx cellulitis of both arms due to multiple dog bites /patient has been up to date with her tetanus immunization as well as her dogs are up to date with immunizations Irrigation debridement of open left distal ulna fracture and open reduction internal fixation, closure of separate forearm lacerations dorsal forearm 11 cm total pod # 1 normocytic anemia HYPERTENSIVE URGENCY plan ortho consult ID consult emperic iv antibiotics, UNASYN blood cultures iv pain control FE PANEL RETIC occult stools DVT PROPHYLAXIS D/W RN 37 MIN pt exam, chart review, > 50% of time spent with exam, chart review, pt care coordination Justifications for Admission Other Justification dog bites with cellulitis History of Present Illness History of Present Illness Patient is a 60 yr old female who was bitten by her dogs yesterday who were fighting , went to [facility] ER , found to have left ulnar distal fracture from large dog bite, sutured by Dr Keith in ER , transfer here for fracture care IMPRESSION Multiple dog bites to both arms provoked Distal left ulnar fx //cellulitis of both arms due to multiple dog bites /normocytic anemia //HYPERTENSIVE URGENCY 09-03 Multiple dog bites to both arms provoked Distal left ulnar fx cellulitis of both arms due to multiple dog bites /patient has been up to date with her tetanus immunization as well as her dogs are up to date with immunizations Irrigation debridement of open left distal ulna fracture and open reduction internal fixation, closure of separate forearm lacerations dorsal forearm 11 cm total pod # 1 normocytic anemia HYPERTENSIVE URGENCY Follow cultures , dr Nava, d/c ok on iv antibiotics iv invanz or unasyn with 24 hr infusion 09/04/2020: Afebrile. No acute events overnight. Plan to continue IV Unasyn. Will discuss with ID about possible oral antibiotics versus continuing with IV Unasyn infusion. 09/05/2020: No acute overnight, afebrile. Patient still with some labile blood pressures. Plan to discharge patient home with IV antibiotics today, and follow-up with ID in 2 weeks. Greater than 30 minutes was spent managing the discharge of this patient. Vitals/I&O Vitals/I&O: Vital Signs Date Time Temp Pulse Resp B/P (MAP) Pulse Ox O2 Delivery O2 Flow Rate FiO2 09/05/20 08:05 79 173/67 09/05/20 07:26 Room Air 09/05/20 07:00 98.3 16 96 98.3 I & O 09/04/20 09/04/20 09/05/20 15:00 23:00 07:00 Intake Total 1840 ml 460.5 ml Output Total 0 ml Balance 1840 ml 460.5 ml Physical Exam Physical Exam: GENERAL: Alert, oriented female, not in distress. VITAL SIGNS: Stable HEENT: Both pupils are round and reacting. No conjunctival lesion. Does have a small superficial laceration on the left upper eyelid. NECK: Supple, no JVP, no lymphadenopathy. LUNGS: Clear. HEART: S1, S2 regular. ABDOMEN: Soft, nontender, no organomegaly. EXTREMITIES: No edema or cyanosis. SKIN: Exam is unremarkable except right upper extremity has multiple skin breakdowns and tenderness present and the left upper extremity is under the soft cast, which was not removed. NEUROLOGIC: The patient is alert, awake, and appropriate. No focal neurologic deficit. General: Alert, Oriented X3, Cooperative, No acute distress Heart: Regular rate, Normal S1, No murmurs Lungs: Other Abdomen: Normal bowel sounds, Soft, No tenderness Extremities: No clubbing, No cyanosis Skin: No rashes Labs Labs: Laboratory Tests Test 09/05/20 03:30 White Blood Count 4.7 x10^3/uL (4.0-11.0) Red Blood Count 3.28 x10^6/uL (3.50-5.40) Hemoglobin 11.8 g/dL (12.0-15.5) Hematocrit 33.8 % (36.0-47.0) Mean Corpuscular Volume 103 fL (79-100) Mean Corpuscular Hemoglobin 36 pg (25-35) Mean Corpuscular Hemoglobin Concent 35 g/dL (31-37) Red Cell Distribution Width 13.3 % (11.5-14.5) Platelet Count 202 x10^3/uL (140-400) Neutrophils (%) (Auto) 37 % (31-73) Lymphocytes (%) (Auto) 43 % (24-48) Monocytes (%) (Auto) 17 % (0-9) Eosinophils (%) (Auto) 2 % (0-3) Basophils (%) (Auto) 1 % (0-3) Neutrophils # (Auto) 1.7 x10^3/uL (1.8-7.7) Lymphocytes # (Auto) 2.0 x10^3/uL (1.0-4.8) Monocytes # (Auto) 0.8 x10^3/uL (0.0-1.1) Eosinophils # (Auto) 0.1 x10^3/uL (0.0-0.7) Basophils # (Auto) 0.0 x10^3/uL (0.0-0.2) Sodium Level 140 mmol/L (136-145) Potassium Level 3.8 mmol/L (3.5-5.1) Chloride Level 105 mmol/L (98-107) Carbon Dioxide Level 24 mmol/L (21-32) Anion Gap 11 (6-14) Blood Urea Nitrogen 12 mg/dL (7-20) Creatinine 0.5 mg/dL (0.6-1.0) Estimated GFR (Cockcroft-Gault) 125.9 Glucose Level 106 mg/dL (70-99) Calcium Level 8.8 mg/dL (8.5-10.1) Comment Review of Relevant I have reviewed the following items arsalan (where applicable) has been applied. Medications: Current Medications Medications (Trade) Dose Ordered Sig/Raffaele Route PRN Reason Start Time Stop Time Status Last Admin Dose Admin Amlodipine Besylate (Norvasc) 5 mg DAILY PO 09/05/20 09:00 09/05/20 08:05 Justifications for Admission Other Justification dog bites with cellulitis CAROLINE MUNOZ MD Sep 05, 2020 08:14
--- NOTE | 2020-09-05 08:37 | PDOC ---
Infectious Disease Note Subjective Subjective Patient is feeling better ROS ROS Pain in the wrist is much better no other complaints Vital Sign Vital Signs Vital Signs Date Time Temp Pulse Resp B/P (MAP) Pulse Ox O2 Delivery O2 Flow Rate FiO2 09/05/20 08:05 79 173/67 09/05/20 07:26 Room Air 09/05/20 07:00 98.3 16 96 98.3 Physical Exam PHYSICAL EXAM GENERAL: Alert, oriented female, not in distress. VITAL SIGNS: Stable HEENT: Both pupils are round and reacting. No conjunctival lesion. Does have a small superficial laceration on the left upper eyelid. NECK: Supple, no JVP, no lymphadenopathy. LUNGS: Clear. HEART: S1, S2 regular. ABDOMEN: Soft, nontender, no organomegaly. EXTREMITIES: No edema or cyanosis. SKIN: Exam is unremarkable except right upper extremity has multiple skin breakdowns and tenderness present and the left upper extremity is under the soft cast, which was not removed. NEUROLOGIC: The patient is alert, awake, and appropriate. No focal neurologic deficit. Labs Lab Laboratory Tests Test 09/05/20 03:30 White Blood Count 4.7 x10^3/uL (4.0-11.0) Red Blood Count 3.28 x10^6/uL (3.50-5.40) Hemoglobin 11.8 g/dL (12.0-15.5) Hematocrit 33.8 % (36.0-47.0) Mean Corpuscular Volume 103 fL (79-100) Mean Corpuscular Hemoglobin 36 pg (25-35) Mean Corpuscular Hemoglobin Concent 35 g/dL (31-37) Red Cell Distribution Width 13.3 % (11.5-14.5) Platelet Count 202 x10^3/uL (140-400) Neutrophils (%) (Auto) 37 % (31-73) Lymphocytes (%) (Auto) 43 % (24-48) Monocytes (%) (Auto) 17 % (0-9) Eosinophils (%) (Auto) 2 % (0-3) Basophils (%) (Auto) 1 % (0-3) Neutrophils # (Auto) 1.7 x10^3/uL (1.8-7.7) Lymphocytes # (Auto) 2.0 x10^3/uL (1.0-4.8) Monocytes # (Auto) 0.8 x10^3/uL (0.0-1.1) Eosinophils # (Auto) 0.1 x10^3/uL (0.0-0.7) Basophils # (Auto) 0.0 x10^3/uL (0.0-0.2) Sodium Level 140 mmol/L (136-145) Potassium Level 3.8 mmol/L (3.5-5.1) Chloride Level 105 mmol/L (98-107) Carbon Dioxide Level 24 mmol/L (21-32) Anion Gap 11 (6-14) Blood Urea Nitrogen 12 mg/dL (7-20) Creatinine 0.5 mg/dL (0.6-1.0) Estimated GFR (Cockcroft-Gault) 125.9 Glucose Level 106 mg/dL (70-99) Calcium Level 8.8 mg/dL (8.5-10.1) Micro Microbiology 09/01/20 Gram Stain - Final, Resulted 09/01/20 Aerobic and Anaerobic Culture - Preliminary, Resulted 09/01/20 Urine Culture - Final, Complete Objective Assessment IMPRESSION: 1. Multiple areas of dog bite. 2. Comminuted fracture of the left distal ulna. Status post ORIF 3. Low-grade fever. 4. Hypertension. 5. Coronary artery disease. Plan Plan of Care Continue antibiotics Follow cultures ,neg so far d/w dr Nava, d/c ok on iv antibiotics iv invanz or unasyn with 24 hr infusion f/u with me in 2 wks Weekly CBC BUN/creatinine and sed rate PARKER TAYLOR MD Sep 05, 2020 08:37
--- NOTE | 2020-09-05 08:42 | PDOC ---
PROGRESS NOTES Date of Service DATE: 09/05/20 TIME: 08:41 Subjective Subjective Problems overnight: Pain much better controlled on hydrocodone and much more alert Objective Vital Signs Vital Signs Date Time Temp Pulse Resp B/P (MAP) Pulse Ox O2 Delivery O2 Flow Rate FiO2 09/05/20 08:05 79 173/67 09/05/20 07:26 Room Air 09/05/20 07:00 98.3 16 96 98.3 09/01/20 12:21 10.0 Physical Exam Left wrist splint clean dry intact right wrist and forearm wounds healing well no surrounding redness flexor extensor function are intact as is her distal neurovascular status and splint is comfortable Labs Laboratory Tests Test 09/05/20 03:30 White Blood Count 4.7 x10^3/uL (4.0-11.0) Red Blood Count 3.28 x10^6/uL (3.50-5.40) Hemoglobin 11.8 g/dL (12.0-15.5) Hematocrit 33.8 % (36.0-47.0) Mean Corpuscular Volume 103 fL (79-100) Mean Corpuscular Hemoglobin 36 pg (25-35) Mean Corpuscular Hemoglobin Concent 35 g/dL (31-37) Red Cell Distribution Width 13.3 % (11.5-14.5) Platelet Count 202 x10^3/uL (140-400) Neutrophils (%) (Auto) 37 % (31-73) Lymphocytes (%) (Auto) 43 % (24-48) Monocytes (%) (Auto) 17 % (0-9) Eosinophils (%) (Auto) 2 % (0-3) Basophils (%) (Auto) 1 % (0-3) Neutrophils # (Auto) 1.7 x10^3/uL (1.8-7.7) Lymphocytes # (Auto) 2.0 x10^3/uL (1.0-4.8) Monocytes # (Auto) 0.8 x10^3/uL (0.0-1.1) Eosinophils # (Auto) 0.1 x10^3/uL (0.0-0.7) Basophils # (Auto) 0.0 x10^3/uL (0.0-0.2) Sodium Level 140 mmol/L (136-145) Potassium Level 3.8 mmol/L (3.5-5.1) Chloride Level 105 mmol/L (98-107) Carbon Dioxide Level 24 mmol/L (21-32) Anion Gap 11 (6-14) Blood Urea Nitrogen 12 mg/dL (7-20) Creatinine 0.5 mg/dL (0.6-1.0) Estimated GFR (Cockcroft-Gault) 125.9 Glucose Level 106 mg/dL (70-99) Calcium Level 8.8 mg/dL (8.5-10.1) Laboratory Tests Test 09/05/20 03:30 White Blood Count 4.7 x10^3/uL (4.0-11.0) Red Blood Count 3.28 x10^6/uL (3.50-5.40) Hemoglobin 11.8 g/dL (12.0-15.5) Hematocrit 33.8 % (36.0-47.0) Mean Corpuscular Volume 103 fL (79-100) Mean Corpuscular Hemoglobin 36 pg (25-35) Mean Corpuscular Hemoglobin Concent 35 g/dL (31-37) Red Cell Distribution Width 13.3 % (11.5-14.5) Platelet Count 202 x10^3/uL (140-400) Neutrophils (%) (Auto) 37 % (31-73) Lymphocytes (%) (Auto) 43 % (24-48) Monocytes (%) (Auto) 17 % (0-9) Eosinophils (%) (Auto) 2 % (0-3) Basophils (%) (Auto) 1 % (0-3) Neutrophils # (Auto) 1.7 x10^3/uL (1.8-7.7) Lymphocytes # (Auto) 2.0 x10^3/uL (1.0-4.8) Monocytes # (Auto) 0.8 x10^3/uL (0.0-1.1) Eosinophils # (Auto) 0.1 x10^3/uL (0.0-0.7) Basophils # (Auto) 0.0 x10^3/uL (0.0-0.2) Sodium Level 140 mmol/L (136-145) Potassium Level 3.8 mmol/L (3.5-5.1) Chloride Level 105 mmol/L (98-107) Carbon Dioxide Level 24 mmol/L (21-32) Anion Gap 11 (6-14) Blood Urea Nitrogen 12 mg/dL (7-20) Creatinine 0.5 mg/dL (0.6-1.0) Estimated GFR (Cockcroft-Gault) 125.9 Glucose Level 106 mg/dL (70-99) Calcium Level 8.8 mg/dL (8.5-10.1) Assessment Assessment POD#ORIF open distal ulna fracture on left with lacerations wrist distal forearm Plan Plan of Care Stable from orthopedic standpoint for discharge with Invanz and awaiting antibiotic approval by insurance Fine motor use of left hand allowed with eating writing typing etc. avoid hard grasping pushing pulling lifting Follow-up Dr. Nava or Kristie 10 to 14 days Justicifation of Admission Dx: Justifications for Admission: Justification of Admission Dx: N/A Cellulitis: Cellulitis Fracture: Fracture LLOYD NAVA MD Sep 05, 2020 08:42
--- NOTE | 2020-09-05 10:25 | PDOC3 ---
Discharge Summary Visit Information Date of Admission: Aug 31, 2020 Date of Discharge: Sep 05, 2020 Brief Hospital Course Allergies Allergies Coded Allergies Type Severity Reaction Last Updated Verified erythromycin base Allergy Intermediate 08/31/20 Yes Vital Signs Vital Signs Date Time Temp Pulse Resp B/P (MAP) Pulse Ox O2 Delivery O2 Flow Rate FiO2 09/05/20 08:05 79 173/67 09/05/20 08:00 Room Air 09/05/20 07:00 98.3 16 96 98.3 Lab Results Laboratory Tests Test 09/05/20 03:30 White Blood Count 4.7 x10^3/uL (4.0-11.0) Red Blood Count 3.28 x10^6/uL (3.50-5.40) Hemoglobin 11.8 g/dL (12.0-15.5) Hematocrit 33.8 % (36.0-47.0) Mean Corpuscular Volume 103 fL (79-100) Mean Corpuscular Hemoglobin 36 pg (25-35) Mean Corpuscular Hemoglobin Concent 35 g/dL (31-37) Red Cell Distribution Width 13.3 % (11.5-14.5) Platelet Count 202 x10^3/uL (140-400) Neutrophils (%) (Auto) 37 % (31-73) Lymphocytes (%) (Auto) 43 % (24-48) Monocytes (%) (Auto) 17 % (0-9) Eosinophils (%) (Auto) 2 % (0-3) Basophils (%) (Auto) 1 % (0-3) Neutrophils # (Auto) 1.7 x10^3/uL (1.8-7.7) Lymphocytes # (Auto) 2.0 x10^3/uL (1.0-4.8) Monocytes # (Auto) 0.8 x10^3/uL (0.0-1.1) Eosinophils # (Auto) 0.1 x10^3/uL (0.0-0.7) Basophils # (Auto) 0.0 x10^3/uL (0.0-0.2) Sodium Level 140 mmol/L (136-145) Potassium Level 3.8 mmol/L (3.5-5.1) Chloride Level 105 mmol/L (98-107) Carbon Dioxide Level 24 mmol/L (21-32) Anion Gap 11 (6-14) Blood Urea Nitrogen 12 mg/dL (7-20) Creatinine 0.5 mg/dL (0.6-1.0) Estimated GFR (Cockcroft-Gault) 125.9 Glucose Level 106 mg/dL (70-99) Calcium Level 8.8 mg/dL (8.5-10.1) Laboratory Tests Test 09/05/20 03:30 White Blood Count 4.7 x10^3/uL (4.0-11.0) Red Blood Count 3.28 x10^6/uL (3.50-5.40) Hemoglobin 11.8 g/dL (12.0-15.5) Hematocrit 33.8 % (36.0-47.0) Mean Corpuscular Volume 103 fL (79-100) Mean Corpuscular Hemoglobin 36 pg (25-35) Mean Corpuscular Hemoglobin Concent 35 g/dL (31-37) Red Cell Distribution Width 13.3 % (11.5-14.5) Platelet Count 202 x10^3/uL (140-400) Neutrophils (%) (Auto) 37 % (31-73) Lymphocytes (%) (Auto) 43 % (24-48) Monocytes (%) (Auto) 17 % (0-9) Eosinophils (%) (Auto) 2 % (0-3) Basophils (%) (Auto) 1 % (0-3) Neutrophils # (Auto) 1.7 x10^3/uL (1.8-7.7) Lymphocytes # (Auto) 2.0 x10^3/uL (1.0-4.8) Monocytes # (Auto) 0.8 x10^3/uL (0.0-1.1) Eosinophils # (Auto) 0.1 x10^3/uL (0.0-0.7) Basophils # (Auto) 0.0 x10^3/uL (0.0-0.2) Sodium Level 140 mmol/L (136-145) Potassium Level 3.8 mmol/L (3.5-5.1) Chloride Level 105 mmol/L (98-107) Carbon Dioxide Level 24 mmol/L (21-32) Anion Gap 11 (6-14) Blood Urea Nitrogen 12 mg/dL (7-20) Creatinine 0.5 mg/dL (0.6-1.0) Estimated GFR (Cockcroft-Gault) 125.9 Glucose Level 106 mg/dL (70-99) Calcium Level 8.8 mg/dL (8.5-10.1) Brief Hospital Course Ms. Haines is a 60 old female who presented with open left distal ulna fracture with lacerations to dorsal forearm from dog bite. Consultation was placed to orthopedic surgery and ID. She had irrigation debridement of open left distal ulna fracture and open reduction internal fixation, closure of separate forearm lacerations dorsal forearm 11 cm total. She was treated with IV antibiotics and discharged on IV Invanz daily. She was instructed to follow-up with ID in 2 weeks. Discharge Information Condition at Discharge: Stable Follow Up: Weeks Disposition/Orders: D/C to Home Scheduled Aspirin (Ecotrin) 325 Mg Tablet., 325 MG PO [id number], #30 Prescribed by: VICTORINO TOVAR MD on 12/01/14 1033 Last Action: Reviewed on 09/01/20 0112 by DONTRELL SWANSON Justicifation of Admission Dx: Justifications for Admission: Justification of Admission Dx: N/A Cellulitis: Cellulitis Fracture: Fracture CAROLINE MUNOZ MD Sep 05, 2020 10:25
[2020-09-05] MEDS ORDERED: HYDR-2765 PO (10:30)
[2020-09-05] MEDS ORDERED: DOCU-153 PO (10:30)
[2020-09-05] MEDS ORDERED: AMLO-186 PO (10:30)
--- NOTE | 2020-09-05 10:38 | NUR ---
SW following. Discussed with RN, pt from home with , room air, cardiac diet. Pt needing IV abx at discharge - would like to do outpatient infusion. CESARIO called down to outpatient who are now stating we have to get the insurance auth for the [facility] department in order to arrange outpatient infusion. CESARIO notified case management director Andreea. Awaiting confirmation. Choice of vendor form completed. Pt would like to go home today. CESARIO will continue to follow.
[2020-09-05 11:00] VITALS: BP 142/68
[2020-09-05] MEDS ORDERED: ERTAPENEM 1GM IVPB(GENERIC) NS 50 ML IV ONE (14:00)
[2020-09-05 15:00] VITALS: BP 143/66
--- NOTE | 2020-09-05 15:49 | NUR ---
Allergies and reactions erythromycin base INR na BUN 12 Cr 0.5 Platelets 202 Blood culture done 09-03-20 blood culture results no growth Order Verified yes Consent signed yes Previous PICC placement no Past Medical/Surgical history and current diagnosis reviewed yes Patient Medical /Surgical History Related to PICC line placement Infectious Disease consult Special considerations for PICC line placement Compromised arm -lt arm fx in cast Infections wound(s) near insertion site- bite mcdaniel PICC placement indication Caustic medication class drug usage, skilled nursing antibiotic usage, Britney Garcia RN PICC Nurse Addendum: 09/05/20 at 1615 by BRTINEY GARCIA RN Amended: Links added.
--- NOTE | 2020-09-05 16:05 | NUR ---
Procedure: Following complete explanation of the PICC procedure including the indications, risks, and potential complications, informed consent was obtained. The possibility for infection was discussed along with signs, symptoms, and prevention. All the questions were answered.yes Written and verbal patient education was provided. Hand hygiene performed. Standardized central line checklist was utilized. The patient was placed in the supine position, the arm was prepped with chlorhexidine and patient draped with maximum sterile barrier. 3 mL 1% lidocaine was infiltrated into the skin to provide local anesthesia. A thorough assessment of right upper extremity completed. Using real-time ultrasound guidance and standardized micro puncture set, the brachial vein was punctured and a peel away sheath was placed using the modified Seldinger technique. A tip location device was used to ensure adequate catheter placement. The catheter was secured using a securement device and an antimicrobial patch was applied directly on the insertion site followed by a transparent dressing. All ports withdraw blood and flush without resistance. Patient tolerated the procedure without apparent complication(s). single Lumen Power PICC placement successful and uncomplicated. Placement verified by EKG tip confirmation system and/or chest x-ray. Tip located in the CAJ. Dr. Velasquez verified that the tip is in the SVC with good placement Complications: none Addendum: 09/05/20 at 1615 by JANNY JACINTO RN Amended: Links added.
--- NOTE | 2020-09-05 16:10 | RAD ---
XR CHEST 1V 09/05/2020 3:50 PM INDICATION: PICC line placement COMPARISON: 11/26/2014 TECHNIQUE: Portable frontal view of the chest is provided. FINDINGS: The cardiomediastinal silhouette is within normal limits. Scarring or atelectasis at the right lung b ase. Lungs are otherwise clear. Right upper extremity PICC is identified with the distal tip projecti ng over the mid superior vena cava. There are no significant pleural effusions. There is no pulmonary vascular congestion. No pneumothora x. No suspicious osseous abnormality. IMPRESSION: There is no acute cardiopulmonary process. Right upper extremity PICC is identified with the distal tip projecting over the mid superior vena ca va. Electronically signed by: Zenia Velasquez MD (09/05/2020 4:08 PM) [id number]
--- NOTE | 2020-09-05 16:29 | NUR ---
Patient discharged home. Patient verbalized understanding of discharge instructions and follow up appointments.
== END 2020-09-05 16:30 | disposition home or self-care (01) | DRG 464 ==
LOC: 4 NORTH 19:25
PROVIDERS: ADMIT Family Medicine; ATTEND Family Medicine
PROC: 0PSL04Z Reposition Left Ulna with Internal Fixation Device, Open Approach (ICD-10-PCS; 2020-09-01)
PROC: 0JBP0ZZ Excision of Left Lower Leg Subcutaneous Tissue and Fascia, Open Approach (ICD-10-PCS; principal; 2020-09-01 09:25)
PROC: 02HV33Z Insertion of Infusion Device into Superior Vena Cava, Percutaneous Approach (ICD-10-PCS; 2020-09-05)
DX: S52.602B Unspecified fracture of lower end of left ulna, initial encounter for open fracture type I or II (principal); L03.113 Cellulitis of right upper limb; L03.114 Cellulitis of left upper limb; S41.151A Open bite of right upper arm, initial encounter; S41.152A Open bite of left upper arm, initial encounter; S01.152A Open bite of left eyelid and periocular area, initial encounter; F31.9 Bipolar disorder, unspecified; I10 Essential (primary) hypertension; I16.0 Hypertensive urgency; I25.10 Atherosclerotic heart disease of native coronary artery without angina pectoris; S61.519A Laceration without foreign body of unspecified wrist, initial encounter; F41.9 Anxiety disorder, unspecified; K21.9 Gastro-esophageal reflux disease without esophagitis; D64.9 Anemia, unspecified; Z20.822 Contact with and (suspected) exposure to COVID-19; Z82.49 Family history of ischemic heart disease and other diseases of the circulatory system
CPT/HCPCS: 36415; 36569; 71045; 76000; 80048; 80053; 81001; 83540; 83550; 84484; 85007; 85025; 85045; 87040; 87071; 87075; 87086; 87426; J0295; J0360; J1100; J1170; J1200; J1335; J1650; J2270; J2405; J2543; J2704; J3010; J7030; J7120; U0003; U0005; 97116-GP; G0378